=== PATIENT | female | born 1985 | race Hispanic/Latino ===

== ENCOUNTER 2018-08-11 23:05 | Emergency (ER) | payer BC ==
[2018-08-11 23:36] LABS: APPEARANCE,URINE SLIGHTLY CLOUDY (CLEAR); BILIRUBIN,URINE Negative (NEGATIVE); COLOR,URINE Yellow (YELLOW); GLUCOSE, URINE (UA) Negative (NEGATIVE); KETONES,URINE Negative (NEGATIVE); LEUKOCYTE ESTERASE ,URINE Moderate (NEGATIVE); NITRATE,URINE Negative (NEGATIVE); OCCULT BLOOD,URINE Moderate (NEGATIVE); PROTEIN,URINE Negative (NEGATIVE); UROBILINOGEN,URINE 0.2 mg/dL (0.2-1.0)
[2018-08-11 23:47] LABS: BACTERIA,URINE Few /HPF (None Seen)
[2018-08-11 23:48] LABS: BASOPHILS % (AUTO) 0.6 % (0.0-5.0); EOSINOPHILS % (AUTO) 0.5 % (0.0-8.0); HEMATOCRIT 39.9 % (36-48); LYMPHOCYTES % (AUTO) 31.8 % (21.0-51.0); MEAN CORPUSCULAR HEMOGLOBIN 30.8 pg (27.0-33.0); MEAN CORPUSCULAR HGB CONC 34.2 g/dL (32.0-36.0); MEAN CORPUSCULAR VOLUME 90.2 fL (79-99); MONOCYTES % (AUTO) 4.2 % (3.0-13.0); NEUTROPHILS % (AUTO) 62.9 % (40.0-77.0); PLATELET COUNT (AUTO) 261 K/uL (130-400); RED BLOOD CELL COUNT(AUTO) 4.43 MIL/uL (4.00-5.50); RED CELL DISTRIBUTION WIDTH 13.1 % (11.0-15.5); WHITE BLOOD COUNT (AUTO) 10.6 K/uL (4.8-10.8)
[2018-08-12 00:02] LABS: CREATININE 0.6 mg/dL (0.5-1.5); POTASSIUM 3.5 mmol/L (3.5-5.1)
[2018-08-12 00:05] LABS: INR 0.98 (0.85-1.15); PROTHROMBIN TIME 10.3 SEC (9.6-11.6)
[2018-08-12 00:31] LABS: ALBUMIN 3.4 g/dL (3.5-5.0); BILIRUBIN,TOTAL 0.4 mg/dL (0.2-1.0); TOTAL PROTEIN, SERUM 7.3 g/dL (6.0-8.3)
== END 2018-08-12 01:43 | disposition home or self-care (01) ==
LOC: EDH 23:05
DX: O20.0 Threatened abortion (principal); Z90.49 Acquired absence of other specified parts of digestive tract; Z3A.01 Less than 8 weeks gestation of pregnancy
CPT/HCPCS: 36415; 76801; 80053; 81001; 84702; 85025; 85610; 85730

== ENCOUNTER 2018-09-20 19:59 | Observation (INO) | payer BC, MEDICAID ==
[~2018-09-20] VITALS: Ht 157.5 cm; Wt 59.0 kg
[2018-09-20 22:09] LABS: BASOPHILS % (AUTO) 0.7 % (0.0-5.0); EOSINOPHILS % (AUTO) 0.4 % (0.0-8.0); HEMATOCRIT 39.8 % (36-48); LYMPHOCYTES % (AUTO) 24.5 % (21.0-51.0); MEAN CORPUSCULAR HEMOGLOBIN 31.1 pg (27.0-33.0); MEAN CORPUSCULAR HGB CONC 34.3 g/dL (32.0-36.0); MEAN CORPUSCULAR VOLUME 90.6 fL (79-99); MONOCYTES % (AUTO) 4.9 % (3.0-13.0); NEUTROPHILS % (AUTO) 69.5 % (40.0-77.0); NUCLEATED RED BLOOD CELLS 0.1 % (0.0-0.19); PLATELET COUNT (AUTO) 239 K/uL (130-400); RED CELL DISTRIBUTION WIDTH 13.9 % (11.0-15.5); WHITE BLOOD COUNT (AUTO) 11.2 K/uL (4.8-10.8)
[2018-09-20 22:21] LABS: CREATININE 0.5 mg/dL (0.5-1.5); POTASSIUM 3.6 mmol/L (3.5-5.1)
[2018-09-20 22:25] LABS: ALBUMIN 3.3 g/dL (3.5-5.0); BILIRUBIN,TOTAL 0.2 mg/dL (0.2-1.0); TOTAL PROTEIN, SERUM 7.5 g/dL (6.0-8.3)
[2018-09-20 22:46] LABS: APPEARANCE,URINE Cloudy (CLEAR); BILIRUBIN,URINE Negative (NEGATIVE); COLOR,URINE Yellow (YELLOW); GLUCOSE, URINE (UA) Negative (NEGATIVE); KETONES,URINE Negative (NEGATIVE); LEUKOCYTE ESTERASE ,URINE Trace (NEGATIVE); NITRATE,URINE Negative (NEGATIVE); OCCULT BLOOD,URINE Negative (NEGATIVE); PROTEIN,URINE Negative (NEGATIVE); UROBILINOGEN,URINE 0.2 mg/dL (0.2-1.0)
[2018-09-20 22:55] LABS: BACTERIA,URINE None Seen /HPF (None Seen); RBC,URINE None Seen /HPF (0-1); SQUAMOUS EPITHELIAL CELL,UR Many /HPF (0-2); WBC,URINE 0-1 /HPF (0-1)
[2018-09-20] MEDS ORDERED: SODIUM CHLORIDE 0.9% 1000ML 1,000 ML IV ONE (23:48)
[2018-09-21] VITALS (7 sets, daily range): BP systolic 93–123; BP diastolic 57–77
[2018-09-21] MEDS ORDERED: ONDANSETRON HCL 4 MG/2 ML VIAL IV PRN (00:30)
[2018-09-21] MEDS ORDERED: MAG HYDROX/AL HYDROX/SIMETH ES 30 ML SUSP UDCUP PO PRN (00:30)
[2018-09-21] MEDS ORDERED: MORPHINE SULFATE 2 MG/ML 1ML SYG IV PRN (00:30)
[2018-09-21] MEDS ORDERED: MORPHINE SULFATE 4 MG/1ML SYG ONE (00:43)
[2018-09-21] MEDS ORDERED: ONDANSETRON HCL 4 MG/2 ML VIAL ONE (00:43)
[2018-09-21] MEDS ORDERED: SODIUM CHLORIDE 0.9% 1000ML 1,000 ML IV ONE (01:00)
--- NOTE | 2018-09-21 01:20 | NUR ---
Patient received from ED: Patient came in via wheelchair with IV of NS regulated at 150 ml/hour infusing to right antecubital patent. She was oriented to her room, call light given. Plan of care discussed with patient verbalizes understanding. Patient claimed, " I had sharp pain on my left upper quadrant of abdomen and lower right side of abdomen that radiates to my back in a scale of 8." " They give me Morphine in ER but I'm anxious to receive the Morphine it might affect my baby inside." I just prefer Tylenol plain for pain. " Patient was given re assurance to give Tylenol plain for pain."
--- NOTE | 2018-09-21 01:55 | NUR ---
Communication: Alhaji Leach PAC, called to verify order NG tube instruction: Low suction was informed that patient denies vomiting only felt nauseated. received orders to hold NG tube instruction: Low suction.
[2018-09-21] MEDS ORDERED: METR-172 PO (02:47)
[2018-09-21] MEDS ORDERED: PREN-66 PO (02:47)
[2018-09-21] MEDS: ACETAMINOPHEN 325 MG TAB PO PRN ×2 (04:03→16:02)
[2018-09-21] MEDS: SODIUM CHLORIDE 0.9% 1000ML 1,000 ML IV SCH ×3 (08:24→21:56)
[2018-09-21 17:34] LABS: HEMATOCRIT 37.5 % (36-48); MEAN CORPUSCULAR HEMOGLOBIN 31.4 pg (27.0-33.0); MEAN CORPUSCULAR HGB CONC 34.3 g/dL (32.0-36.0); MEAN CORPUSCULAR VOLUME 91.5 fL (79-99); PLATELET COUNT (AUTO) 243 K/uL (130-400); RED BLOOD CELL COUNT(AUTO) 4.09 MIL/uL (4.00-5.50); RED CELL DISTRIBUTION WIDTH 13.9 % (11.0-15.5); WHITE BLOOD COUNT (AUTO) 11.9 K/uL (4.8-10.8)
[2018-09-21 18:01] LABS: ALBUMIN 2.9 g/dL (3.5-5.0); BILIRUBIN,TOTAL 0.7 mg/dL (0.2-1.0); CREATININE 0.6 mg/dL (0.5-1.5); POTASSIUM 3.8 mmol/L (3.5-5.1); TOTAL PROTEIN, SERUM 6.5 g/dL (6.0-8.3)
[2018-09-22] MEDS: ACETAMINOPHEN 325 MG TAB PO PRN (03:37)
[2018-09-22 03:38] VITALS: BP 90/61
[2018-09-22] MEDS: SODIUM CHLORIDE 0.9% 1000ML 1,000 ML IV SCH ×2 (04:50→11:48)
[2018-09-22 05:17] LABS: CHOLESTEROL 172 mg/dL (<200); HDL CHOLESTEROL 85 mg/dL (35-85); LDL DIRECT 78 mg/dL (0-99); LIPASE 250 U/L (114-286); TRIGLYCERIDES 118 mg/dL (30-200)
[2018-09-22 07:37] VITALS: BP 108/62
--- NOTE | 2018-09-22 08:20 | NUR ---
PATIENT IS RESTING QUIETLY AND DENIES ANY FURTHER PAIN. PIV IS INFUSING WELL TO LEFT ANTERIOR FOREARM AT 150CC/HR OF NS.
[2018-09-22 11:28] VITALS: BP 93/53
--- NOTE | 2018-09-22 12:00 | NUR ---
TIP CABRERA ROUNDED WITH DR. Mallory AND INFORMED PATIENT OF DISCHARGE IF TOLERATED REGULAR DIET. REGULAR DIET WAS ORDERED FOR LUNCH AND DINNER. RICK WHELAN WILL PLACE DISCHARGE ORDER FOR PT TO BE DISCHARGE.
--- NOTE | 2018-09-22 12:22 | NUR ---
DC PLAN VISITED WITH PATIENT. PATIENT LIVES WITH DAUGHTER. INDEPENDENT ABLE TO PERFORM ADL'S. PATIENT HAS NO SERVICES OR DME'S. FEELS SAFE TO RETURN HOME. Addendum: 09/22/18 at 1223 by LELA HERNÁNDEZ RN CM Amended: Links added.
--- NOTE | 2018-09-22 12:45 | NUR ---
ORDER RECEIVED FOR DISCHARGE AND SCRIPT FOR VIT. WAS TRANSMITTED TO [facility].
[2018-09-22 15:38] VITALS: BP 97/54
--- NOTE | 2018-09-22 15:45 | NUR ---
DISCHARGE INSTRUCTIONS INITIATED AND INFO PROVIDED ON LOWFAT DIET AND DIET FOR PATIENT'S WITH PANCREATITIS. PATIENT STABLE.
--- NOTE | 2018-09-22 18:00 | NUR ---
PATIENT WAS TAKEN VIA W/C TO FAMILY VEHICLE AND WAS DISCHARGED TO HER SIGNIFICANT OTHER IN STABLE CONDITION. PATIENT WAS ABLE TO TOLERATE REGULAR LOWFAT DIET AND DENIES ANY PAIN AFTER HAVING LUNCH AND DINNER AND ATE 100% OF MEALS.
== END 2018-09-22 18:00 | disposition home or self-care (01) ==
LOC: EDH 19:59 → EDHIP 09-21 00:02 → WSH 09-21 01:20
PROVIDERS: ADMIT Internal Medicine; ATTEND Internal Medicine
DX: O99.611 Diseases of the digestive system complicating pregnancy, first trimester (principal); K85.90 Acute pancreatitis without necrosis or infection, unspecified; Z3A.12 12 weeks gestation of pregnancy; Z90.49 Acquired absence of other specified parts of digestive tract
CPT/HCPCS: 36415 ×3; 76705; 76801; 80053 ×2; 80061; 81001; 82150 ×2; 83690 ×3; 85025; 85027; 99283; G0378 ×42; J2270; J2405; J7030 ×5

== ENCOUNTER 2018-12-24 22:16 | Observation (INO) | payer MEDICAID ==
[~2018-12-24] VITALS: Ht 157.5 cm; Wt 68.0 kg
[~2018-12-24 22:16] MED LIST: PREN1CAP31 PO
[2018-12-24] MEDS ORDERED: MORPHINE SULFATE 4 MG/1ML SYG ONE (22:42)
[2018-12-24 22:48] LABS: APPEARANCE,URINE Clear (CLEAR); BILIRUBIN,URINE Negative (NEGATIVE); COLOR,URINE Yellow (YELLOW); GLUCOSE, URINE (UA) Negative (NEGATIVE); KETONES,URINE Negative (NEGATIVE); LEUKOCYTE ESTERASE ,URINE Small (NEGATIVE); NITRATE,URINE Negative (NEGATIVE); OCCULT BLOOD,URINE Negative (NEGATIVE); PH,URINE 7.5 (5.0-8.0); PROTEIN,URINE Negative (NEGATIVE)
[2018-12-24 22:58] LABS: HCG,QUAL RESULT POSITIVE (NEGATIVE)
[2018-12-24 23:12] LABS: RBC,URINE 0-1 /HPF (0-1); WBC,URINE 0-1 /HPF (0-1)
[2018-12-24 23:12] LABS: CREATININE 0.3 mg/dL (0.5-1.5); POTASSIUM 3.4 mmol/L (3.5-5.1)
[2018-12-24 23:13] LABS: BACTERIA,URINE Few /HPF (None Seen)
[2018-12-24 23:16] LABS: ALBUMIN 2.7 g/dL (3.5-5.0); BILIRUBIN,TOTAL 0.3 mg/dL (0.2-1.0); TOTAL PROTEIN, SERUM 6.5 g/dL (6.0-8.3)
[2018-12-24 23:25] LABS: BASOPHILS % (AUTO) 1.1 % (0.0-5.0); EOSINOPHILS % (AUTO) 0.9 % (0.0-8.0); HEMATOCRIT 32.9 % (36-48); MEAN CORPUSCULAR HEMOGLOBIN 32.7 pg (27.0-33.0); MEAN CORPUSCULAR HGB CONC 35.3 g/dL (32.0-36.0); MEAN CORPUSCULAR VOLUME 92.6 fL (79-99); MONOCYTES % (AUTO) 5.1 % (3.0-13.0); NEUTROPHILS % (AUTO) 70.9 % (40.0-77.0); NUCLEATED RED BLOOD CELLS 0.1 % (0.0-0.19); PLATELET COUNT (AUTO) 184 K/uL (130-400); RED BLOOD CELL COUNT(AUTO) 3.55 MIL/uL (4.00-5.50); RED CELL DISTRIBUTION WIDTH 14.4 % (11.0-15.5); WHITE BLOOD COUNT (AUTO) 12.4 K/uL (4.8-10.8)
[2018-12-25 00:57] LABS: AMPHET/METH SCREEN,URINE NEGATIVE (NEGATIVE); BARBITURATE SCREEN, URINE NEGATIVE (NEGATIVE); BENZODIAZEPINES SCREEN,URINE NEGATIVE (NEGATIVE); CANNABINOID SCREEN,URINE NEGATIVE (NEGATIVE); COCAINE SCREEN,URINE NEGATIVE (NEGATIVE); OPIATE SCREEN,URINE NEGATIVE (NEGATIVE); PHENCYCLIDINE SCREEN,URINE NEGATIVE (NEGATIVE)
[2018-12-25] MEDS ORDERED: BUTORPHANOL TARTRATE 2 MG/ML IVP SCH (06:30)
[2018-12-25] MEDS ORDERED: BUTORPHANOL TARTRATE 1 MG/ML IVP PRN (14:30)
[2018-12-25 15:11] VITALS: BP 116/67
[2018-12-25 15:43] LABS: AMYLASE 76 U/L (25-115); LIPASE 289 U/L (114-286)
[2018-12-25] MEDS ORDERED: METOCLOPRAMIDE 10 MG/2 ML VIAL IVP SCH (17:00)
[2018-12-25 19:35] VITALS: BP 103/62
[2018-12-25] MEDS: LACTATED RINGERS 1000ML 1,000 ML IV SCH (20:46)
[2018-12-25] MEDS ORDERED: BUTORPHANOL TARTRATE 2 MG/ML IVP PRN (21:03)
[2018-12-25] MEDS: FAMOTIDINE/PF 20 MG/2 ML VIAL IV SCH (21:34)
[2018-12-26 00:52] VITALS: BP 89/56
[2018-12-26] MEDS: METOCLOPRAMIDE 10 MG/2 ML VIAL IVP SCH ×3 (01:31→17:00)
[2018-12-26] MEDS: LACTATED RINGERS 1000ML 1,000 ML IV SCH ×2 (03:17→12:09)
[2018-12-26 03:45] VITALS: BP 95/59
[2018-12-26 07:20] VITALS: BP 101/58
--- NOTE | 2018-12-26 08:05 | NUR ---
NST NST COMPLETED FROM , PT FELT BABY MOVE PLOTTED ON STRIP, STRIP IN CHART, TOLERATED WELL, NO C/O PAIN AT THIS TIME
[2018-12-26] MEDS: FAMOTIDINE/PF 20 MG/2 ML VIAL IV SCH (09:02)
[2018-12-26] MEDS ORDERED: ACETAMINOPHEN 325 MG TAB PO PRN (09:45)
[2018-12-26 10:04] LABS: BASOPHILS % (AUTO) 0.7 % (0.0-5.0); EOSINOPHILS % (AUTO) 0.4 % (0.0-8.0); HEMATOCRIT 32.9 % (36-48); LYMPHOCYTES % (AUTO) 17.8 % (21.0-51.0); MEAN CORPUSCULAR HEMOGLOBIN 33.7 pg (27.0-33.0); MEAN CORPUSCULAR HGB CONC 35.9 g/dL (32.0-36.0); MEAN CORPUSCULAR VOLUME 93.8 fL (79-99); MONOCYTES % (AUTO) 3.3 % (3.0-13.0); NEUTROPHILS % (AUTO) 77.8 % (40.0-77.0); PLATELET COUNT (AUTO) 220 K/uL (130-400); RED BLOOD CELL COUNT(AUTO) 3.51 MIL/uL (4.00-5.50); RED CELL DISTRIBUTION WIDTH 13.9 % (11.0-15.5); WHITE BLOOD COUNT (AUTO) 8.9 K/uL (4.8-10.8)
[2018-12-26 10:13] LABS: CREATININE 0.4 mg/dL (0.5-1.5); POTASSIUM 3.5 mmol/L (3.5-5.1)
[2018-12-26 10:18] LABS: ALBUMIN 2.5 g/dL (3.5-5.0); BILIRUBIN,TOTAL 0.9 mg/dL (0.2-1.0); CRP QUANTITATIVE 18.1 mg/L (0.00-9.0); TOTAL PROTEIN, SERUM 5.9 g/dL (6.0-8.3)
[2018-12-26 12:12] VITALS: BP 99/63
--- NOTE | 2018-12-26 15:50 | NUR ---
LUNCH PT COMPLETED EVERYTHING ON LUNCH TRAY, DOES NOT HAVE ANY PAIN, WILL TAKE OUT IV SO PT CAN SHOWER AND GET DISCHARGE PAPER WORK READY
[2018-12-26 16:40] VITALS: BP 100/58
--- NOTE | 2018-12-26 17:30 | NUR ---
DISCHARGE PT STABLE, NO PAIN, NO COMPLAINTS; PT LEFT UNIT, VIA WHEELCHAIR, STILL , ACCOMPANIED BY LUIS MIGUEL, PHUC AND SPOUSE CARRYING ALL PERSONAL BELONGINGS AND INSTRUCTIONS; PT LEFT FACILITY IN PERSONAL VEHICLE
== END 2018-12-26 17:30 | disposition home or self-care (01) ==
LOC: EDH 22:16 → EDHIP 22:17 → LDH 12-25 00:21 → WSH 12-25 15:06
PROVIDERS: ADMIT Obstetrics & Gynecology; ATTEND Obstetrics & Gynecology
DX: O26.892 Other specified pregnancy related conditions, second trimester (principal); R10.13 Epigastric pain; R11.0 Nausea; Z3A.26 26 weeks gestation of pregnancy; Z79.899 Other long term (current) drug therapy
CPT/HCPCS: 36415 ×3; 76700; 80053 ×2; 80305; 81001; 81025; 82150; 83690 ×2; 85025 ×2; 86140; 96374; 96375; 96376 ×2; 99284; G0378 ×43; J0595 ×3; J2270; J2765 ×3; J3490 ×2; J7120 ×4; 96360; 96361

== ENCOUNTER 2021-12-14 23:57 | Emergency (ER) | payer MEDICAID ==
[~2021-12-14] VITALS: Ht 157.5 cm; Wt 63.5 kg
[2021-12-15 01:01] LABS: BASOPHILS % (AUTO) 0.3 % (0.0-5.0); EOSINOPHILS % (AUTO) 0.9 % (0.0-8.0); HEMATOCRIT 40.9 % (36-48); LYMPHOCYTES % (AUTO) 42.6 % (21.0-51.0); MEAN CORPUSCULAR HEMOGLOBIN 29.9 pg (27.0-33.0); MEAN CORPUSCULAR HGB CONC 33.7 g/dL (32.0-36.0); MEAN CORPUSCULAR VOLUME 88.7 fL (79-99); MONOCYTES % (AUTO) 4.8 % (3.0-13.0); NEUTROPHILS % (AUTO) 51.3 % (40.0-77.0); PLATELET COUNT (AUTO) 256 K/uL (130-400); RED BLOOD CELL COUNT(AUTO) 4.61 MIL/uL (4.00-5.50); RED CELL DISTRIBUTION WIDTH 13.4 % (11.0-15.5); WHITE BLOOD COUNT (AUTO) 7.5 K/uL (4.8-10.8)
[2021-12-15 01:33] LABS: CREATININE 0.7 mg/dL (0.5-1.5); POTASSIUM 4.2 mmol/L (3.5-5.1)
[2021-12-15 01:39] LABS: ALBUMIN 3.5 g/dL (3.5-5.0); BILIRUBIN,TOTAL 0.4 mg/dL (0.2-1.0); TOTAL PROTEIN, SERUM 7.5 g/dL (6.0-8.3)
[2021-12-15] MEDS ORDERED: PANTOPRAZOLE 40 MG/VIAL IVP ONE (02:00)
[2021-12-15] MEDS ORDERED: FAMOTIDINE 20MG VIAL IV ONE (02:00)
[2021-12-15] MEDS ORDERED: 0.9%NACL 1000ML 1,000 ML IV ONE ×2 (02:00→02:30)
[2021-12-15] MEDS ORDERED: ONDANSETRON 4MG INJ IVP ONE (02:00)
[2021-12-15] MEDS ORDERED: METOCLOPRAMIDE 10 MG/2 ML VIAL IVP ONE (02:00)
[2021-12-15 02:21] LABS: APPEARANCE,URINE Cloudy (CLEAR); BILIRUBIN,URINE Negative (NEGATIVE); COLOR,URINE Yellow (YELLOW); GLUCOSE, URINE (UA) Negative (NEGATIVE); KETONES,URINE Negative (NEGATIVE); LEUKOCYTE ESTERASE ,URINE Trace (NEGATIVE); NITRATE,URINE Negative (NEGATIVE); OCCULT BLOOD,URINE Trace (NEGATIVE); PROTEIN,URINE Negative (NEGATIVE); UROBILINOGEN,URINE 0.2 mg/dL (0.2-1.0)
[2021-12-15 02:27] LABS: BACTERIA,URINE Moderate /HPF (None Seen); MUCUS,URINE Rare LPF (None Seen); RBC,URINE 0-1 /HPF (0-1); SQUAMOUS EPITHELIAL CELL,UR Few /HPF (0-2); WBC,URINE 0-1 /HPF (0-1)
[2021-12-15] MEDS ORDERED: KETOROLAC 30MG VIAL (30MG/ML) IVP ONE (04:00)
[2021-12-15] MEDS ORDERED: DiphenhydrAMINE HCL 50 MG/ML VIAL IV ONE (04:00)
[2021-12-15] MEDS ORDERED: PANT40TA PO (04:42)
[2021-12-15] MEDS ORDERED: DICY20TA2 PO (04:42)
[2021-12-15] MEDS ORDERED: ONDA4TAB10 PO (04:42)
[2021-12-15] MEDS ORDERED: METO-296 PO (04:42)
[2021-12-15 05:38] VITALS: BP 111/70
== END 2021-12-15 05:41 | disposition home or self-care (01) ==
LOC: EDH 23:57
DX: R10.10 Upper abdominal pain, unspecified (principal); R10.13 Epigastric pain; E86.9 Volume depletion, unspecified; Z79.899 Other long term (current) drug therapy; Z90.49 Acquired absence of other specified parts of digestive tract; Z98.890 Other specified postprocedural states
CPT/HCPCS: 36415; 80053; 81001; 83690; 85025; 87088; 96361; 96374; 96375; 99284; J1200; J1885; J2405; J2765; J7030 ×2; S0028; S0164; C9113; J3490

== ENCOUNTER 2023-03-20 08:53 | Day surgery (SDC) | payer MEDICAID ==
[2023-03-15 11:53] LABS: BASOPHILS % (AUTO) 0.1 % (0.0-5.0); EOSINOPHILS % (AUTO) 0.4 % (0.0-8.0); HEMATOCRIT 42.9 % (36-48); LYMPHOCYTES % (AUTO) 36.2 % (21.0-51.0); MEAN CORPUSCULAR HEMOGLOBIN 30.2 pg (27.0-33.0); MEAN CORPUSCULAR HGB CONC 33.8 g/dL (32.0-36.0); MEAN CORPUSCULAR VOLUME 89.4 fL (79-99); MONOCYTES % (AUTO) 4.7 % (3.0-13.0); NEUTROPHILS % (AUTO) 58.3 % (40.0-77.0); PLATELET COUNT (AUTO) 286 K/uL (130-400); RED CELL DISTRIBUTION WIDTH 12.7 % (11.0-15.5); WHITE BLOOD COUNT (AUTO) 6.9 K/uL (4.8-10.8)
[2023-03-15 12:02] LABS: CREATININE 0.7 mg/dL (0.5-1.5); POTASSIUM 4.5 mmol/L (3.5-5.1)
[2023-03-15 12:24] VITALS: BP 110/77; PULSE 70; RESP 16
[~2023-03-20] VITALS: Ht 157.5 cm; Wt 66.4 kg
[2023-03-20] VITALS (19 sets, daily range): BP systolic 107–127; BP diastolic 66–89; PULSE 72–99; RESP 15–18
[~2023-03-20 08:53] MED LIST changes: +DOXY100C5 PO; -PREN1CAP31 PO; +SPIR25TA6 PO
[2023-03-20] MEDS ORDERED: LACTATED RINGERS 1000ML 1,000 ML IV ONE (09:20)
[2023-03-20] MEDS: CEFAZOLIN SODIUM 2 GM VIAL ONE ×2 (09:34→10:18)
[2023-03-20] MEDS ORDERED: NEOSTIGMINE 5MG/5ML SYR IV ONE (09:46)
[2023-03-20] MEDS ORDERED: LIDOCAINE PF 100MG/5ML (2%) SYRINGE 5ML ONE (09:46)
[2023-03-20] MEDS ORDERED: SUCCINYLCHOLINE 200MG/10ML SYR ONE (09:46)
[2023-03-20] MEDS ORDERED: PROPOFOL 10 MG/ML 20ML VIAL IV ONE (09:46)
[2023-03-20] MEDS ORDERED: ROCURONIUM 10MG/1ML SYR 10 MG/ML ML ONE (09:46)
[2023-03-20] MEDS ORDERED: DEXAMETHASONE SOD PHOSPHATE 10MG/ML 1ML VIAL ONE (09:46)
[2023-03-20] MEDS ORDERED: MIDAZOLAM HCL 1 MG/ML 2ML VIAL ONE (09:46)
[2023-03-20] MEDS ORDERED: GLYCOPYRROLATE 1 MG/5 ML SYRINGE ONE (09:46)
[2023-03-20] MEDS ORDERED: ONDANSETRON 4MG INJ ONE (09:46)
[2023-03-20] MEDS ORDERED: FENTANYL CITRATE PF 50 MCG/1 ML 2ML VIAL ONE (09:47)
[2023-03-20] MEDS ORDERED: BUPIVACAINE/PF 0.5% 10ML VIAL ONE (09:55)
[2023-03-20] MEDS ORDERED: BUPIVACAINE/PF 0.5% 10ML VIAL IV ONE (10:50)
[2023-03-20] MEDS ORDERED: MEPERIDINE-PF 25 MG/ML SYG ONE (11:43)
[2023-03-20] MEDS ORDERED: IBUPROFEN 800 MG TAB ONE (12:22)
== END 2023-03-20 13:15 | disposition home or self-care (01) ==
LOC: DAH 08:53
PROVIDERS: ATTEND Surgery
DX: K42.9 Umbilical hernia without obstruction or gangrene (principal); Z20.822 Contact with and (suspected) exposure to COVID-19; Z98.890 Other specified postprocedural states; Z82.49 Family history of ischemic heart disease and other diseases of the circulatory system; Z83.3 Family history of diabetes mellitus; Z98.891 History of uterine scar from previous surgery; Z90.49 Acquired absence of other specified parts of digestive tract; Z80.9 Family history of malignant neoplasm, unspecified
CPT/HCPCS: 80048; 84703; 85025; 87426; 36415; 49591; 81025; A6260; A4663; A4452; J7120; J3010; J0330; J3490 ×4; J1100; J2710; J2250; J2405; J2175; J0690; A4930; A4215; A4223; A4222; A4221; A4600; J2001; J2704

== ENCOUNTER 2023-11-13 07:03 | Observation (INO) | payer MEDICAID ==
[2023-11-09 10:21] VITALS: BP 118/70; PULSE 77; RESP 18
[2023-11-09 10:27] LABS: BASOPHILS # (AUTO) 0.03 K/uL (0.00-0.20); BASOPHILS % (AUTO) 0.4 % (0.0-5.0); EOSINOPHILS # (AUTO) 0.07 K/uL (0.00-0.70); EOSINOPHILS % (AUTO) 0.9 % (0.0-8.0); HEMATOCRIT 44.3 % (36-48); IMMATURE GRANULOCYTE ABSOLUTE 0.02 K/uL (0-1); LYMPHOCYTES # (AUTO) 3.2 K/uL (1.0-4.8); LYMPHOCYTES % (AUTO) 38.8 % (21.0-51.0); MEAN CORPUSCULAR HEMOGLOBIN 30.8 pg (27.0-33.0); MEAN CORPUSCULAR HGB CONC 34.1 g/dL (32.0-36.0); MEAN CORPUSCULAR VOLUME 90.4 fL (79-99); MONOCYTES # (AUTO) 0.4 K/uL (0.1-1.0); MONOCYTES % (AUTO) 5.3 % (3.0-13.0); NEUTROPHILS # (AUTO) 4.4 K/uL (1.8-7.7); NEUTROPHILS % (AUTO) 54.4 % (40.0-77.0); PLATELET COUNT (AUTO) 289 K/uL (130-400); RED CELL DISTRIBUTION WIDTH 12.5 % (11.0-15.5); WHITE BLOOD COUNT (AUTO) 8.2 K/uL (4.8-10.8)
[2023-11-09 10:29] LABS: CREATININE 0.8 mg/dL (0.5-1.5); POTASSIUM 4.8 mmol/L (3.5-5.1)
[2023-11-09 10:37] LABS: INR <= 0.93 (0.85-1.15); PROTHROMBIN TIME 10.7 SEC (9.6-11.6)
[2023-11-09 10:39] LABS: PARTIAL THROMBOPLASTIN TIME 29.8 SEC (26.3-35.5)
[2023-11-13] VITALS (32 sets, daily range): BP systolic 104–135; BP diastolic 64–82; PULSE 68–117; RESP 14–20; O2SAT 98–100
[~2023-11-13] VITALS: Ht 157.5 cm; Wt 69.1 kg
[~2023-11-13 07:03] MED LIST changes: -SPIR25TA6 PO
[2023-11-13] MEDS ORDERED: ROCURONIUM BROMIDE 10MG/1ML 5ML VL ONE (08:10)
[2023-11-13] MEDS ORDERED: DEXAMETHASONE SOD PHOSPHATE 4 MG/ML 1ML VIAL ONE (08:10)
[2023-11-13] MEDS ORDERED: FENTANYL CITRATE PF 50 MCG/1 ML 2ML VIAL ONE (08:10)
[2023-11-13] MEDS ORDERED: PROPOFOL 10 MG/ML 20ML VIAL IV ONE (08:10)
[2023-11-13] MEDS ORDERED: MIDAZOLAM HCL 1 MG/ML 2ML VIAL ONE (08:10)
[2023-11-13] MEDS ORDERED: LIDOCAINE PF 100MG/5ML (2%) SYRINGE 5ML ONE (08:10)
[2023-11-13] MEDS ORDERED: ONDANSETRON 4MG INJ ONE (08:11)
[2023-11-13] MEDS: CEFAZOLIN SODIUM 2 GM VIAL ONE (08:30)
[2023-11-13] MEDS: BUPIVACAINE/PF 0.5% 30ML VIAL ONE (08:44)
[2023-11-13] MEDS: LACTATED RINGERS 1000ML 1,000 ML IV ONE (08:58)
[2023-11-13] MEDS ORDERED: GLYCOPYRROLATE 0.2 MG/ML 5 ML VIAL ONE (09:08)
[2023-11-13] MEDS ORDERED: NEOSTIGMINE METHYLSULFATE 1MG/ML IV ONE (09:08)
[2023-11-13] MEDS: KETOROLAC 30MG VIAL (30MG/ML) ONE (09:30)
[2023-11-13] MEDS: ONDANSETRON 4MG INJ ONE (10:20)
[2023-11-13] MEDS: MEPERIDINE-PF 25 MG/ML SYG ONE ×2 (10:21→10:38)
[2023-11-13] MEDS: ACETAMINOPHEN 1,000 MG/100 ML VIAL IV ONE ×2 (11:01→12:00)
[2023-11-13] MEDS ORDERED: 0.9%NACL 1000ML 1,000 ML IV SCH (12:00)
[2023-11-13] MEDS: ACETAMINOPHEN WITH CODEINE 1 TAB TAB PO PRN (12:24)
[2023-11-13] MEDS: MORPHINE 4 MG SYG IVP PRN (14:08)
[2023-11-13] MEDS: CEFAZOLIN SODIUM 2 GM VIAL IVPB SCH (15:34)
[2023-11-13] MEDS: ONDANSETRON 4MG INJ IVP PRN (20:16)
[2023-11-14] VITALS (7 sets, daily range): BP systolic 114–125; BP diastolic 72–87; PULSE 65–74; RESP 17–18; O2SAT 98–99
[2023-11-15 00:01] VITALS: BP 116/77; PULSE 77; RESP 19
[2023-11-15 05:08] VITALS: BP 110/75; PULSE 94; RESP 18
[2023-11-15 07:09] LABS: BASOPHILS # (AUTO) 0.01 K/uL (0.00-0.20); BASOPHILS % (AUTO) 0.1 % (0.0-5.0); EOSINOPHILS # (AUTO) 0.26 K/uL (0.00-0.70); EOSINOPHILS % (AUTO) 2.6 % (0.0-8.0); HEMATOCRIT 37.1 % (36-48); IMMATURE GRANULOCYTE ABSOLUTE 0.02 K/uL (0-1); LYMPHOCYTES # (AUTO) 3.1 K/uL (1.0-4.8); LYMPHOCYTES % (AUTO) 30.7 % (21.0-51.0); MEAN CORPUSCULAR HEMOGLOBIN 30.8 pg (27.0-33.0); MEAN CORPUSCULAR HGB CONC 34.8 g/dL (32.0-36.0); MEAN CORPUSCULAR VOLUME 88.5 fL (79-99); MONOCYTES # (AUTO) 0.6 K/uL (0.1-1.0); MONOCYTES % (AUTO) 5.7 % (3.0-13.0); NEUTROPHILS # (AUTO) 6.2 K/uL (1.8-7.7); NEUTROPHILS % (AUTO) 60.7 % (40.0-77.0); PLATELET COUNT (AUTO) 234 K/uL (130-400); RED BLOOD CELL COUNT(AUTO) 4.19 MIL/uL (4.00-5.50); RED CELL DISTRIBUTION WIDTH 12.8 % (11.0-15.5); WHITE BLOOD COUNT (AUTO) 10.2 K/uL (4.8-10.8)
[2023-11-15 08:00] VITALS: BP 116/79; PULSE 71; RESP 18
[2023-11-15 08:01] VITALS: O2SAT 94
== END 2023-11-15 11:48 | disposition home or self-care (01) ==
LOC: DAH 07:03 → DAHIP 07:04 → DAH 07:04 → WSH 13:59
PROVIDERS: ADMIT Surgery; ATTEND Surgery
DX: K42.9 Umbilical hernia without obstruction or gangrene (principal); Z90.49 Acquired absence of other specified parts of digestive tract; Z88.1 Allergy status to other antibiotic agents
CPT/HCPCS: 80048; 85025 ×2; 85610; 85730; 36415 ×2; 49615; 96376 ×2; 96365; 96366 ×2; 96375; 81025; G0378 ×48; A4452; C1781; J7120; J3010; J3490 ×4; J2250; J2405 ×5; J2270 ×4; J1885; J2710; J0665; J1100; J2175 ×2; J0690 ×6; A4930; A4215; A4223; A4213; A4222; A4221; A4663; A4600; J2001; J2704

== ENCOUNTER → 2023-12-25 | Outpatient (CLI) | payer MEDICAID ==
[2023-12-25 10:17] LABS: BASOPHILS # (AUTO) 0.01 K/uL (0.00-0.20); BASOPHILS % (AUTO) 0.1 % (0.0-5.0); EOSINOPHILS # (AUTO) 0.05 K/uL (0.00-0.70); EOSINOPHILS % (AUTO) 0.7 % (0.0-8.0); HEMATOCRIT 44.4 % (36-48); IMMATURE GRANULOCYTE ABSOLUTE 0.02 K/uL (0-1); LYMPHOCYTES # (AUTO) 2.7 K/uL (1.0-4.8); LYMPHOCYTES % (AUTO) 40.2 % (21.0-51.0); MEAN CORPUSCULAR HEMOGLOBIN 30.8 pg (27.0-33.0); MEAN CORPUSCULAR HGB CONC 34.5 g/dL (32.0-36.0); MEAN CORPUSCULAR VOLUME 89.3 fL (79-99); MONOCYTES # (AUTO) 0.3 K/uL (0.1-1.0); MONOCYTES % (AUTO) 4.5 % (3.0-13.0); NEUTROPHILS # (AUTO) 3.6 K/uL (1.8-7.7); NEUTROPHILS % (AUTO) 54.2 % (40.0-77.0); PLATELET COUNT (AUTO) 291 K/uL (130-400); RED BLOOD CELL COUNT(AUTO) 4.97 MIL/uL (4.00-5.50); RED CELL DISTRIBUTION WIDTH 12.6 % (11.0-15.5); WHITE BLOOD COUNT (AUTO) 6.7 K/uL (4.8-10.8)
[2023-12-25 10:35] LABS: ALBUMIN 4.3 g/dL (3.5-5.0); BILIRUBIN,TOTAL 1.1 mg/dL (0.2-1.0); CREATININE 0.8 mg/dL (0.5-1.0); POTASSIUM 3.9 mmol/L (3.5-5.1); TOTAL PROTEIN, SERUM 8.5 g/dL (6.0-8.3)
== END | disposition home or self-care (01) ==
LOC: LAB 09:11
PROVIDERS: ATTEND Internal Medicine Gastroenterology
DX: R93.3 Abnormal findings on diagnostic imaging of other parts of digestive tract (principal); K85.00 Idiopathic acute pancreatitis without necrosis or infection; R14.0 Abdominal distension (gaseous)
CPT/HCPCS: 36415; 80053; 82150; 82784; 82787; 83516; 83690; 84478; 85025; 86231; 86364

== ENCOUNTER → 2023-12-29 | Outpatient (CLI) | payer MEDICAID ==
[~2023-12-29] MED LIST changes: +IOHEXOL 350 MG/ML 100ML INFUS..BTL IV ONE
== END | disposition home or self-care (01) ==
LOC: RAH 09:57
PROVIDERS: ATTEND Internal Medicine Gastroenterology
DX: K42.9 Umbilical hernia without obstruction or gangrene (principal); K85.00 Idiopathic acute pancreatitis without necrosis or infection; R93.3 Abnormal findings on diagnostic imaging of other parts of digestive tract; I25.10 Atherosclerotic heart disease of native coronary artery without angina pectoris
CPT/HCPCS: 74170; Q9967

== ENCOUNTER 2024-03-03 03:33 | Emergency (ER) | payer MEDICAID ==
[~2024-03-03] VITALS: Ht 157.5 cm; Wt 65.3 kg
[~2024-03-03 03:33] MED LIST changes: -IOHEXOL 350 MG/ML 100ML INFUS..BTL IV ONE
[2024-03-03 04:01] LABS: ADD UA MICROSCOPIC NO; APPEARANCE,URINE CLEAR (CLEAR); BILIRUBIN,URINE NEGATIVE (NEGATIVE); COLOR,URINE COLORLESS (YELLOW); GLUCOSE, URINE (UA) NEGATIVE (NEGATIVE); KETONES,URINE NEGATIVE (NEGATIVE); LEUKOCYTE ESTERASE ,URINE NEGATIVE Leu/uL (NEGATIVE); NITRATE,URINE NEGATIVE (NEGATIVE); OCCULT BLOOD,URINE NEGATIVE (NEGATIVE); PH,URINE 6.5 (5.0-8.0); PROTEIN,URINE NEGATIVE (NEGATIVE); UROBILINOGEN,URINE 0.2 mg/dL (0.2-1.0)
[2024-03-03 04:03] LABS: HCG,QUALITATIVE URINE NEGATIVE (NEGATIVE)
[2024-03-03 04:15] LABS: BASOPHILS # (AUTO) 0.01 K/uL (0.00-0.20); BASOPHILS % (AUTO) 0.1 % (0.0-5.0); EOSINOPHILS # (AUTO) 0.06 K/uL (0.00-0.70); EOSINOPHILS % (AUTO) 0.7 % (0.0-8.0); HEMATOCRIT 39.9 % (36-48); IMMATURE GRANULOCYTE ABSOLUTE 0.02 K/uL (0-1); LYMPHOCYTES # (AUTO) 3.3 K/uL (1.0-4.8); LYMPHOCYTES % (AUTO) 41.4 % (21.0-51.0); MEAN CORPUSCULAR HEMOGLOBIN 30.9 pg (27.0-33.0); MEAN CORPUSCULAR HGB CONC 34.6 g/dL (32.0-36.0); MEAN CORPUSCULAR VOLUME 89.3 fL (79-99); MONOCYTES # (AUTO) 0.5 K/uL (0.1-1.0); MONOCYTES % (AUTO) 5.8 % (3.0-13.0); NEUTROPHILS # (AUTO) 4.2 K/uL (1.8-7.7); NEUTROPHILS % (AUTO) 51.8 % (40.0-77.0); PLATELET COUNT (AUTO) 242 K/uL (130-400); RED BLOOD CELL COUNT(AUTO) 4.47 MIL/uL (4.00-5.50); RED CELL DISTRIBUTION WIDTH 12.6 % (11.0-15.5); WHITE BLOOD COUNT (AUTO) 8.1 K/uL (4.8-10.8)
[2024-03-03 04:26] LABS: CREATININE 0.6 mg/dL (0.5-1.0); POTASSIUM 3.4 mmol/L (3.5-5.1)
[2024-03-03 04:32] LABS: ALBUMIN 3.8 g/dL (3.5-5.0); BILIRUBIN,TOTAL 0.5 mg/dL (0.2-1.0); TOTAL PROTEIN, SERUM 7.8 g/dL (6.0-8.3)
[2024-03-03] MEDS: HYDROMORPHONE 1 MG INJ IVP ONE (05:16)
[2024-03-03 05:53] VITALS: BP 128/90; PULSE 80; RESP 18; O2SAT 96
== END 2024-03-03 06:17 | disposition home or self-care (01) ==
LOC: EDH 03:33
DX: R10.13 Epigastric pain (principal); R11.2 Nausea with vomiting, unspecified; Z90.49 Acquired absence of other specified parts of digestive tract; Z98.890 Other specified postprocedural states
CPT/HCPCS: 99285; 74176; 96374; 82150; 80053; 83690; 85025; 81003; 81025; 36415; J1170

== ENCOUNTER 2024-07-29 07:56 | Day surgery (SDC) | payer MEDICAID ==
[2024-07-25 10:16] LABS: BASOPHILS # (AUTO) 0.02 K/uL (0.00-0.20); BASOPHILS % (AUTO) 0.2 % (0.0-5.0); EOSINOPHILS # (AUTO) 0.04 K/uL (0.00-0.70); EOSINOPHILS % (AUTO) 0.5 % (0.0-8.0); HEMATOCRIT 39.9 % (36-48); IMMATURE GRANULOCYTE ABSOLUTE 0.02 K/uL (0-1); LYMPHOCYTES # (AUTO) 1.8 K/uL (1.0-4.8); LYMPHOCYTES % (AUTO) 21.7 % (21.0-51.0); MEAN CORPUSCULAR HEMOGLOBIN 29.8 pg (27.0-33.0); MEAN CORPUSCULAR HGB CONC 33.3 g/dL (32.0-36.0); MEAN CORPUSCULAR VOLUME 89.5 fL (79-99); MONOCYTES # (AUTO) 0.4 K/uL (0.1-1.0); MONOCYTES % (AUTO) 4.3 % (3.0-13.0); NEUTROPHILS # (AUTO) 6.2 K/uL (1.8-7.7); NEUTROPHILS % (AUTO) 73.1 % (40.0-77.0); PLATELET COUNT (AUTO) 264 K/uL (130-400); RED BLOOD CELL COUNT(AUTO) 4.46 MIL/uL (4.00-5.50); RED CELL DISTRIBUTION WIDTH 12.7 % (11.0-15.5); WHITE BLOOD COUNT (AUTO) 8.4 K/uL (4.8-10.8)
[2024-07-25 10:19] VITALS: BP 129/86; PULSE 74; RESP 16; TEMP 98
[2024-07-25 10:27] LABS: INR 0.98 (0.85-1.15); PROTHROMBIN TIME 10.6 SEC (9.6-11.6)
[2024-07-25 10:29] LABS: PARTIAL THROMBOPLASTIN TIME 28.3 SEC (26.3-35.5)
[2024-07-29] VITALS (15 sets, daily range): BP systolic 116–127; BP diastolic 54–77; PULSE 80–106; RESP 14–18; TEMP 97.3–98
[~2024-07-29] VITALS: Ht 157.5 cm; Wt 66.5 kg
[2024-07-29] MEDS: ceFAZolin SODIUM 2 GM VIAL ONE (08:36)
[2024-07-29] MEDS: LACTATED RINGERS 1000ML 1,000 ML IV ONE (08:37)
[2024-07-29 08:52] LABS: CREATININE 0.9 mg/dL (0.5-1.0); POTASSIUM 3.3 mmol/L (3.5-5.1)
[2024-07-29] MEDS ORDERED: BUPIvacaine/PF 0.25% 30ML VIAL IJ ONE (11:03)
[2024-07-29] MEDS ORDERED: ondanSETRON 4MG INJ ONE (11:43)
[2024-07-29] MEDS ORDERED: LIDOCAINE PF 100MG/5ML (2%) SYRINGE 5ML ONE (11:43)
[2024-07-29] MEDS ORDERED: MIDAZOLAM HCL 1 MG/ML 2ML VIAL ONE (11:43)
[2024-07-29] MEDS ORDERED: proPOFol 10 MG/ML 20ML VIAL IV ONE (11:43)
[2024-07-29] MEDS ORDERED: rocuRONium bROMide 10MG/1ML 5ML VL ONE (11:43)
[2024-07-29] MEDS ORDERED: FENTanyl CITRate PF 50 MCG/1 ML 2ML VIAL ONE (11:45)
[2024-07-29] MEDS ORDERED: dexaMETHasone SOD PHOSPHATE 10MG/ML 1ML VIAL ONE (12:16)
[2024-07-29] MEDS: ceFAZolin SODIUM 2 GM VIAL IVPB ONE (12:19)
[2024-07-29] MEDS ORDERED: NEOSTIGMINE METHYLSULFATE 1MG/ML IV ONE (12:59)
[2024-07-29] MEDS ORDERED: GLYCOPYRROLATE 0.2 MG/ML 5 ML VIAL ONE (12:59)
--- NOTE | 2024-07-29 13:19 | OP ---
Operative Note: DATE OF PROCEDURE: 07/29/24 SURGEON: DELMIS SERRANO MD FAX MACHINE REPAIRER: [] ANESTHESIA: [] General ANESTHESIOLOGIST/BACK DIGGER OPERATOR: [] PREOPERATIVE DIAGNOSIS: [] Incisional hernia POSTOPERATIVE DIAGNOSIS: [] The same SYNOPSIS: [] PROCEDURE: [] Repair of incisional hernia robotically ESTIMATED BLOOD LOSS: [] None INDICATIONS: [] DESCRIPTION OF PROCEDURE: [] With the patient under general anesthesia in reverse Trendelenburg I placed a left upper quadrant Veress needle and abdomen insufflated. An 8 mm trocar for the robot was placed in the left upper quadrant and direct vision I placed two additional 8 mm trocars one in the left flank and in the other one in the left lower quadrant. I visualize significant amount of omentum stuck to the mesh. This is not seem to be any defect within the mesh. Some of the edges of the mesh were slightly and I then proceed to reapproximated with 0 V lock continue in the right upper side and in the left lower side of the mesh. Decision to remove the mesh were placed a new one was done because there is no actually defect in the mesh. I then inspected for any bleeding and all the trocars were removed under direct vision we placed local anesthesia and then closed the wound with 4-0 Monocryl and Steri-Strips DELMIS SERRANO MD Jul 29, 2024 13:19
[2024-07-29] MEDS: ondanSETRON 4MG INJ ONE (13:41)
[2024-07-29] MEDS: MEPERIDINE-PF 25 MG/ML SYG ONE ×2 (13:42→13:46)
--- NOTE | 2024-07-29 14:13 | NUR ---
Full and complete Discharge Instructions given to Patient and Family both verbally and in writing.. All questions answered. Voiced understanding to Surgical precautions and Follow Up. Binder intact as per Dr. Lui. PIV removed with catheter tip intact. Denies c/o pain or discomfort. Appears calm and cooperative. Pending Brother to pick her and Mom up. Informed BOSTON Liriano of pending delay and status of Patient.
== END 2024-07-29 14:52 | disposition home or self-care (01) ==
LOC: DAH 07:56
PROVIDERS: ATTEND Surgery
DX: K43.2 Incisional hernia without obstruction or gangrene (principal); Z79.01 Long term (current) use of anticoagulants; Z90.49 Acquired absence of other specified parts of digestive tract; Z98.890 Other specified postprocedural states; Z79.899 Other long term (current) drug therapy; Z53.8 Procedure and treatment not carried out for other reasons
CPT/HCPCS: 84703; 85025; 85610; 85730; 36415 ×2; 49591; 49623; 80048; 81025; A6260; A4663; J7030; J7120; J3010; J1100; J0665; J3490 ×2; J2003; J2250; J2704; J2405 ×2; J2710; J2175 ×2; J0690 ×2; A4649; C1760; A4215; A4223; A4222; A4221; A4450; A4600

== ENCOUNTER → 2024-11-20 | Outpatient (CLI) | payer MEDICAID ==
[~2024-11-20] MED LIST changes: -DOXY100C5 PO; +IOHEXOL-350 75 ML VIAL IV ONE
--- NOTE | 2024-11-20 08:50 | HMCIMG ---
Exam Type: CT ABDOMEN/PELVIS W/CONTRAST Clinical Information: UNSPECIFIED ABDOMINAL PAIN Comparison: None Contrast: 100 cc's Isovue 370 IV, no complications or adverse reactions CT Dose Index (CTDI): 31.60 mGy Dose Length Product (DLP): 1740.80 total mGy-cm Findings: No evidence of nephro or ureterolithiasis is found. No hydronephrosis or ureteral dilatation is seen. The lung bases are clear. The stomach is unremarkable. It shows no wall thickening. No gross ulceration is seen. It is not overly distended. There are no surrounding inflammatory changes. No wall lesions are identified to suggest cancer. The spleen is unremarkable. It is not enlarged. The pancreas shows normal anatomy. It is not fatty replaced. It shows no lesions. The pancreatic duct is not dilated. The gallbladder is surgically absent. The adrenal glands are unremarkable. There is no enlargement. No lesions are noted. The liver is unremarkable. It shows no focal masses. The appendix is unremarkable. It shows no evidence of inflammation. No appendicolith is seen. The small bowel is unremarkable. There is no evidence of dilatation to suggest obstruction. No evidence of adynamic ileus is seen. There is no small bowel wall thickening to suggest enteritis. The colon is unremarkable. The urinary bladder is unremarkable. There is no wall thickening to suggest tumor or inflammation. There are no intraluminal calculi. There are no diverticula. There is no evidence of chronic bladder outlet obstruction. There is no evidence of urinary bladder distention to suggest urinary retention. The other pelvic structures are unremarkable. The bony and vascular structures are unremarkable for the patient's age. IMPRESSION: NEGATIVE CT SCAN OF THE ABDOMEN AND PELVIS WITH ORAL AND IV CONTRAST. This study was performed using dose reduction techniques to include automated exposure control and/or adjustment of the mA and/or kV according to patient size.
== END | disposition home or self-care (01) ==
LOC: RAH 08:16
PROVIDERS: ATTEND Surgery
DX: R10.9 Unspecified abdominal pain (principal); Z90.49 Acquired absence of other specified parts of digestive tract
CPT/HCPCS: 74177; Q9967

== ENCOUNTER 2024-12-17 17:50 | Observation (INO) | payer MEDICAID ==
[~2024-12-17] VITALS: Ht 160 cm; Wt 64.3 kg
[2024-12-17] MEDS: cefTRIAXone 1G VIAL IVPB SCH (08:00)
--- NOTE | 2024-12-17 18:00 | NUR ---
PT JUST NOW PLACED IN MY BED 11
--- NOTE | 2024-12-17 18:46 | ERN ---
General Chief Complaint: Post-Op Problem Stated Complaint: POST OP PROBLEM Time Seen by MD: 17:59 Source: patient History of Present Illness Initial Comments A 39-year-old female coming in complaining of abdominal pain. Per patient she had hernia repair by Dr. Ho on Monday four days ago. She states that the pain is increasingly gotten worse and states he was here for further evaluation. Allergies: Coded Allergies: No Known Drug Allergies (Unverified Allergy, Unknown, 09/21/18) Home Meds No Active Prescriptions or Reported Meds Past Medical History Past Medical History: Other Medical History Other: PANCREATITIS Past Surgical History: Cholecystectomy, Other, Surgical History Other: HERNIA Social History Social History: Negative, Lives with family Female( History) LMP: Oct 12, 2024 ROS Dictation CONSTITUTIONAL: No chills, no fever, no weakness, no diaphoresis, no malaise. HEAD/FACE: No signs of trauma. EENT: No eye pain, no blurred vision, no tearing, no double vision, no ear pain, no ear discharge, no nose pain, no nasal congestion, no throat pain, no throat swelling, no mouth pain. RESPIRATORY: No cough, no orthopnea, no SOB, no stridor, no wheezing. CARDIOVASCULAR: No chest pain, no edema, no palpitations, no syncope. GASTROINTESTINAL/ABDOMINAL: abdominal pain, no constipation, no diarrhea, no nausea, no vomiting. GENITOURINARY: No abnormal discharge, no dysuria, no frequent urination, no hematuria. No complaints of pain in the genitals. MUSCULOSKELETAL: No back pain, no gout, no joint pain, no joint swelling, no muscle pain, no muscle stiffness, no neck pain. INTEGUMENTARY: No change in color, no change in hair/nails, no dryness, no lesion, no lumps, no rash. NEUROLOGICAL/PSYCH: No anxiety, not depressed, no emotional problem, no headache, no numbness, no pre-existing deficit, no history of seizures, no tremors, no weakness. HEMATOLOGIC/LYMPHATIC: Not anemic, no history of blood clots, no apparent bleeding, no bruising, glands not swollen. All Systems Negative, Except as Noted. Physical Exam Physical Exam Dictation VITAL SIGNS: Reviewed. GENERAL APPEARANCE: Alert, oriented x3, no acute distress, obese. HEAD AND FACE: Non-traumatic. EYES: PERRL, pink conjunctivas, eyelid no trauma, anterior chamber clear. EARS: Pinnas intact and no signs of trauma or erythema. Ear canals clear and no discharge. TMs no erythema. NOSE: No discharge, no bleeding. OROPHARYNX: Mouth normal, teeth no caries, tongue pink. Pharynx clear, no erythema. Tonsils no exudates, no abscesses noted. Mucous membrane moist. NECK: Supple, non-tender, no thyromegaly, no masses, no JVD, no bruits. BREAST: Deferred. CHEST: No tenderness, no crepitus, no paradoxical movement, no retractions. LUNGS: Clear, well-ventilated, symmetric, no rales, no wheezing, no rhonchi, no stridor, good breath sounds bilaterally. HEART: Regular rate, regular rhythm, no murmur, no gallops. VASCULAR: No peripheral edema. ABDOMEN: Soft, positive bowel sounds, nondistended, no guarding, nontender, no rebound, no masses no hepatomegaly, no splenomegaly, no Orr's sign, no hernias. RECTAL: Deferred. GENITAL: Deferred. NEUROLOGICAL: Normal speech, gross motor function intact, gross sensory function intact. MUSCULOSKELETAL: Neck nontender, full range of motion, back nontender, full range of motion. EXTREMITIES: Nontender, full range of motion. SKIN: Color pink, dry, no turgor, no rash, no lacerations, no abrasions, no contusions. LYMPHATICS: Deferred. Results Laboratory and Microbiology Lab and Micro Result Laboratory Tests Test 12/17/24 17:59 12/17/24 19:00 Urine Color COLORLESS (YELLOW) Urine Appearance CLOUDY (CLEAR) H Urine pH 6.5 (5.0-8.0) Urine Specific Golden 1.000 (1.001-1.031) Urine Protein NEGATIVE mg/dL (NEGATIVE) Urine Glucose (UA) NEGATIVE mg/dL (NEGATIVE) Urine Ketones NEGATIVE mg/dL (NEGATIVE) Urine Occult Blood +- (TRACE) (NEGATIVE) H Urine Nitrate NEGATIVE (NEGATIVE) Urine Bilirubin NEGATIVE mg/dL (NEGATIVE) Urine Urobilinogen 0.2 mg/dL (0.2-1.0) Urine Leukocyte Esterase 500 Kirk/uL (NEGATIVE) H Urine RBC 6-10 /HPF (0-1) H Urine WBC 11-25 /HPF (0-1) H Urine Squamous Epithelial Cells RARE /HPF (0-2) Urine Bacteria RARE /HPF (None Seen) Urine Other Casts 1 /LPF (None Seen) Urine HCG, Qualitative NEGATIVE (NEGATIVE) White Blood Count 8.7 K/uL (4.8-10.8) Red Blood Count 3.70 MIL/uL (4.00-5.50) L Hemoglobin 11.3 g/dL (12.0-16.0) L Hematocrit 33.6 % (36-48) L Mean Corpuscular Volume 90.8 fL (79-99) Mean Corpuscular Hemoglobin 30.5 pg (27.0-33.0) Mean Corpuscular Hemoglobin Concent 33.6 g/dL (32.0-36.0) Red Cell Distribution Width 13.0 % (11.0-15.5) Platelet Count 293 K/uL (130-400) Mean Platelet Volume 9.6 fL (7.5-10.5) Immature Granulocyte % (Auto) 0.2 % (0-1) Neutrophils (%) (Auto) 64.0 % (40.0-77.0) Lymphocytes (%) (Auto) 28.9 % (21.0-51.0) Monocytes (%) (Auto) 4.9 % (3.0-13.0) Eosinophils (%) (Auto) 1.8 % (0.0-8.0) Basophils (%) (Auto) 0.2 % (0.0-5.0) Neutrophils # (Auto) 5.6 K/uL (1.8-7.7) Lymphocytes # (Auto) 2.5 K/uL (1.0-4.8) Monocytes # (Auto) 0.4 K/uL (0.1-1.0) Eosinophils # (Auto) 0.16 K/uL (0.00-0.70) Basophils # (Auto) 0.02 K/uL (0.00-0.20) Absolute Immature Granulocyte (auto 0.02 K/uL (0-1) Nucleated Red Blood Cells 0.0 % (0.0-0.19) Sodium Level 142 mmol/L (136-145) Potassium Level 3.6 mmol/L (3.5-5.1) Chloride Level 105 mmol/L (101-111) Carbon Dioxide Level 29 mmol/L (21-32) Blood Urea Nitrogen 6 mg/dL (7-18) L Creatinine 0.6 mg/dL (0.5-1.0) Glomerular Filtration Rate Calc 117 mL/min (>90) Random Glucose 93 mg/dL (70-105) Total Calcium 9.1 mg/dL (8.5-10.1) Total Bilirubin 0.7 mg/dL (0.2-1.0) Aspartate Amino Transf (AST/SGOT) 20 U/L (10-37) Alanine Aminotransferase (ALT/SGPT) 15 U/L (12-78) Alkaline Phosphatase 59 U/L (50-136) Total Creatine Kinase 37 U/L (21-232) Troponin I High Sensitivity < 4 ng/L (4-50) L Total Protein 7.0 g/dL (6.0-8.3) Albumin 3.4 g/dL (3.5-5.0) L Labs Reviewed?: Yes EKG/XRAY/US/CT/MRI EKG Comment 12/17/2024 time 6:27 p.m. Ventricular rate 83 Sinus rhythm MS [address] wave elevation or depression MDM MDM: Differential diagnosis: Rationale: Tests considered and ordered secondary to shared decision making include: Previous outside records reviewed: Old ER visits. Risk of complication and/or morbidity or mortality of patient management: None Medications-Per medication reconciliation Need for hospitalization: Patient does not meet criteria for hospitalization. Need for emergency major/minor surgery: No There are no social concerns with this patient. Prescription drug management Prescriptions will include symptomatic care Patient's prior external medical records from other ER visits were reviewed by me as indicated. Prior testing and results from previous visits were reviewed. Prior tests were taken into account with medical decision making and resource utilization, independent historian/historians were used to obtain complete medical history. I independently interpreted the test that were performed, results were reviewed by me and considered findings on radiology if ordered. Medical management and examination interpretation discussions were had by me with other qualified healthcare professionals as indicated for the patient's care. Unlikely be SBO patient says she has been stooling every day. It was soft normal. Unlikely to be biliary disease appendicitis. Stated that right upper quadrant no right upper quadrant pain no right lower quadrant pain no fevers no chills no nausea no vomiting. Likely they gas and pressure. From recent surgery. Likely be abscess. By said we can do labs test and CT to make sure there was no abscess or any other issues. No chest pain or shortness of breath. No other questions complaints concerns at this time. I updated the patient. To me I told her this likely hematoma. They then I updated her to on the read this is a hernia. Either way she was having intractable pain. There is a new hernia or had hernia started again. Otherwise so we will admit admitted to the hospital. At this time her abdomen is soft and no signs of peritonitis. Vitals are stable labs are stable. I told the patient I will give her another dose of pain medications I did speak to Dr. Lui at 9:20 p.m. ED Course Orders Procedure Category Date Status Time Cbc With Differential LAB 12/17/24 Complete 18:05 Comprehensive LAB 12/17/24 Complete Metabolic Panel 18:05 ,Urine Test LAB 12/17/24 Complete 18:05 Urinalysis Profile LAB 12/17/24 Complete 18:05 12 Lead Ekg Tracing- EKG 12/17/24 Logged Technical 18:05 Creatine Kinase, Total LAB 12/17/24 Complete 18:05 Ct Abdomen/Pelvis CT 12/17/24 Resulted W/Contrast 18:47 Troponin I High LAB 12/17/24 Complete Sensitivity 18:49 Hydrocodone/Apap PHA 12/17/24 Complete 5/325 (Leighton 5/325mg) 19:00 Culture Urine SONIYA 12/17/24 In Process 19:17 Iohexol (Omnipaque) PHA 12/17/24 Complete 19:53 Ceftriaxone 1g Vial PHA 12/17/24 Complete (Rocephine 1g Inj) 20:30 Morphine 4mg Syg PHA 12/17/24 Complete (Morphine 4mg Syg) 21:00 Current Medications Medications (Trade) Dose Ordered Sig/Dawn Route PRN Reason Start Time Stop Time Status Last Admin Dose Admin Acetaminophen/ Hydrocodone Bitart (NORco 5/325MG) 1 tab ONCE ONCE PO 12/17/24 19:00 12/17/24 19:01 DC 12/17/24 19:07 Ceftriaxone Sodium (ROCEphine 1G INJ) 1 gm ONCE ONCE IVPB 12/17/24 20:30 12/17/24 20:31 DC 12/17/24 20:38 Iohexol (Omnipaque) 35,000 mg STK-MED ONCE IV 12/17/24 19:53 12/17/24 19:53 DC Morphine Sulfate (morPHINE 4MG SYG) 4 mg ONCE ONCE IVP 12/17/24 21:00 12/17/24 21:01 DC 12/17/24 20:54 Vital Signs Date Time Temp Pulse Resp B/P (MAP) Pulse Ox O2 Delivery O2 Flow Rate FiO2 12/17/24 18:18 98.4 86 19 130/77 100 Room Air* 0 21 12/17/24 17:51 98.8 84 20 129/88 99 Room Air DX & DISP Disposition: Inpatient Departure Impression: Primary Impression: Abdominal pain Condition: Stable Scripts No Active Prescriptions or Reported Meds Referrals: TIMOTHY MAHAN (PCP) JONAH BERRY MD Dec 17, 2024 18:46 KHADIJAH CESAR MD Dec 17, 2024 19:20
[2024-12-17 19:05] LABS: APPEARANCE,URINE CLOUDY (CLEAR); BILIRUBIN,URINE NEGATIVE (NEGATIVE); COLOR,URINE COLORLESS (YELLOW); GLUCOSE, URINE (UA) NEGATIVE (NEGATIVE); KETONES,URINE NEGATIVE (NEGATIVE); LEUKOCYTE ESTERASE ,URINE 500 Leu/uL (NEGATIVE); NITRATE,URINE NEGATIVE (NEGATIVE); PH,URINE 6.5 (5.0-8.0); PROTEIN,URINE NEGATIVE (NEGATIVE); UROBILINOGEN,URINE 0.2 mg/dL (0.2-1.0)
[2024-12-17] MEDS: HYDROcodone/APAP 5/325 1 TAB TABLET PO ONE (19:07)
--- NOTE | 2024-12-17 19:10 | NUR ---
REPORT ENDORSED TO BALWINDER CAMARGO
[2024-12-17 19:17] LABS: BASOPHILS # (AUTO) 0.02 K/uL (0.00-0.20); BASOPHILS % (AUTO) 0.2 % (0.0-5.0); CREATININE 0.6 mg/dL (0.5-1.0); EOSINOPHILS # (AUTO) 0.16 K/uL (0.00-0.70); EOSINOPHILS % (AUTO) 1.8 % (0.0-8.0); HEMATOCRIT 33.6 % (36-48); IMMATURE GRANULOCYTE ABSOLUTE 0.02 K/uL (0-1); LYMPHOCYTES # (AUTO) 2.5 K/uL (1.0-4.8); LYMPHOCYTES % (AUTO) 28.9 % (21.0-51.0); MEAN CORPUSCULAR HEMOGLOBIN 30.5 pg (27.0-33.0); MEAN CORPUSCULAR HGB CONC 33.6 g/dL (32.0-36.0); MEAN CORPUSCULAR VOLUME 90.8 fL (79-99); MONOCYTES # (AUTO) 0.4 K/uL (0.1-1.0); MONOCYTES % (AUTO) 4.9 % (3.0-13.0); NEUTROPHILS # (AUTO) 5.6 K/uL (1.8-7.7); PLATELET COUNT (AUTO) 293 K/uL (130-400); POTASSIUM 3.6 mmol/L (3.5-5.1); WHITE BLOOD COUNT (AUTO) 8.7 K/uL (4.8-10.8)
[2024-12-17 19:17] LABS: ADD UA MICROSCOPIC YES
[2024-12-17 19:21] LABS: ALBUMIN 3.4 g/dL (3.5-5.0); BILIRUBIN,TOTAL 0.7 mg/dL (0.2-1.0)
[2024-12-17 19:25] LABS: HCG,QUALITATIVE URINE NEGATIVE (NEGATIVE)
[2024-12-17 19:26] LABS: BACTERIA,URINE RARE /HPF (None Seen); OTHER CASTS, URINE 1 /LPF (None Seen); SQUAMOUS EPITHELIAL CELL,UR RARE /HPF (0-2)
[2024-12-17] MEDS ORDERED: IOHEXOL 350 MG/ML 100ML INFUS..BTL IV ONE (19:53)
--- NOTE | 2024-12-17 20:25 | HMCIMG ---
CT ABDOMEN/PELVIS W/CONTRAST HISTORY: Right upper quadrant pain COMPARISON: 11/20/2024 TECHNIQUE: Multiple sequential axial images of the abdomen and pelvis were obtained from the dome of the diaphragm through symphysis pubis. Patient was given 100 cc of Omnipaque through intravenous route. Oral contrast was not given. FINDINGS: No pleural effusion is seen bilaterally. There is no evidence of parenchymal disease or pulmonary nodule of the visualized lower lungs. Degenerative changes of the thoracolumbar spine are present. The heart is not enlarged. Liver measures 16 cm. Postcholecystectomy changes. There is small periumbilical ventral hernia with fat content and questionable bowel content. Intraventricular changes may be related to recent surgery there is right ovarian cyst measuring 3.4 cm. T-shaped intrauterine device is seen. The liver, spleen, adrenal glands and pancreas are unremarkable. There is no evidence of hydronephrosis bilaterally. No evidence of renal stone is seen. Fecal material is seen in the colon. There are normal size retroperitoneal and mesenteric lymph nodes. No ascites is seen. No CT evidence of acute appendicitis. Pelvic sidewalls are symmetric bilaterally. Bladder is well distended without wall thickening. IMPRESSION: 1. There is small periumbilical ventral hernia with fat content and questionable bowel content. Intraventricular changes may be related to recent surgery there is right ovarian cyst measuring 3.4 cm. T-shaped intrauterine device is seen. CT was performed with one or more following dose reduction techniques: automated exposure control, adjustment of the mA and kv according to patient's size, or use of a iterative reconstruction technique.
[2024-12-17] MEDS: cefTRIAXone 1G VIAL IVPB ONE (20:38)
[2024-12-17] MEDS: morPHINE 4 MG SYG IVP ONE (20:54)
--- NOTE | 2024-12-17 21:39 | NUR ---
PATIENT REPORTS SHE DOES NOT TAKE ANY PRESCRIBED MEDICATIONS
--- NOTE | 2024-12-17 22:06 | HP ---
[facility] HISTORY [facility] PHYSICAL Date of Service: Dec 17, 2024 Time of Service: 22:06 PCP Dylan Duffy HISTORY OF PRESENT ILLNESS: This is a 39-year-old female with past medical history of pancreatitis and umbilical hernia who presents to the ED for evaluation of abdominal pain which started around 8 pm yesterday.Patient states she underwent and umbilical hernia repair with mesh on 12/13/2024 performed by and was discharged home on 12/14/2024 and since discharge patient was experiencing abdominal pain initially tolerable and she thought it was part of the recent procedure however patient felt that pain is getting more severe , she is having chills and nausea but no vomiting so she called the office of and was instructed by staff to come to the ED if pain is intolerable,thus prompted this admission. Seen and examined patient in the ER awake alert and coherent appears uncomfortab le. Patient denies fever, diarrhea, vomiting, chest pain, cough and shortness of breaths. Vital signs temperature 98.4, heart rate 77, blood pressure 124/85 saturation 100% on room air. Labs hemoglobin 11, hematocrit 33, platelet count 293. Chemistries unremarkable troponin less than four albumin 3.4. Urinalysis consistent with urinary tract infection. CT abdomen and pelvis with contrast result revealed there is small periumbilical ventral hernia with fat content and questionable bowel content. Intraventricular changes may be related to recent surgery there is right ovarian cyst measuring 3.4 cm. T-shaped intrauterine device is seen. While in the ER patient received hydrocodone one tab, Rocephin 1 g IV and morphine 4 mg IV. As per ER doctor, general surgeon Dr. Ho was already notified regarding the patient. We will admit patient for further medical management. REVIEW OF SYSTEMS CONSTITUTIONAL: Positive chills Denies fevers, r night sweats. No unintentional weight loss reported. NEUROLOGICAL: Denies headache, amaurosis fugax, motor weakness, sensory d eficit, vertigo/spinning sensation, gait abnormalities, or tremors. ENT: No hearing loss, otalgia, otorrhea, rhinitis, rhinorrhea, hoarseness, or sore throat. CARDIOVASCULAR: Denies any exertional angina, dyspnea on exertion, orthopnea, paroxysmal nocturnal dyspnea, palpitations, life-threatening arrhythmias, claudication. PULMONARY: Denies any shortness of breath, cough, phlegm/sputum, hemoptysis, pleuritic chest pain. SLEEP: Denies morning headaches, daytime somnolence or napping. Denies difficulty falling asleep, staying asleep, waking from sleep. Denies knowledge of snoring. GASTROINTESTINAL: Positive abdominal pain and nausea Denies any type of dysphagia to either liquids or solids. Denies vomiting, pyrosis, early satiety, diarrhea, constipation, or changes in stool consistency or caliber. Denies coffee-ground emesis, hematemesis, hematochezia, or melanotic stools. GENITOURINARY: Denies frequency, urgency, nocturia, hematuria or incontinence (Storage/Irritative symptoms.) Low urinary stream, straining to void, urinary intermittency or hesitancy, splitting of the voiding stream, terminal dribbling. ENDOCRINOLOGIC: Denies polyuria, polydipsia, polyphagia or heat/cold intolerances. HEMATOLOGIC: Denies thrombophilia/previous clots, or coagulopathy/bleeding disorders. ONCOLOGIC: Denies personal history of malignancy. DERMATOLOGIC: Denies rashes or pruritus. PSYCHIATRIC: Denies any suicidal or homicidal ideation. Denies hallucinations. PAST MEDICAL HISTORY: [Pancreatitis and umbilical hernia ] PAST SURGICAL HISTORY: [Status post umbilical hernia repair with mesh on 12/13/[address] Ho ] PAST SOCIAL HISTORY: [Patient lives with kids. Patient denies alcohol tobacco and recreational drug use ] FAMILY HISTORY: [Hypertension and diabetes ] Coded Allergies: No Known Drug Allergies (Unverified Allergy, Unknown, 09/21/18) PHYSICAL EXAM GENERAL APPEARANCE: The patient is awake, alert, and oriented, in no acute cardiopulmonary distress. NEUROLOGICAL: Cranial nerves II-XII grossly intact. Motor is 5/5 in bilateral upper and lower extremities proximal to distal. No sensory deficits. HEENT: Face is symmetric. Pupils are equal and reactive. Extraocular movements are intact. NECK: Supple. No JVD. No thyromegaly. No submental, submandibular, pre- /postauricular, occipital or supraclavicular lymphadenopathy. CHEST: Normal chest expansion. No Telemetry. LUNGS: Absence of any rales, rhonchi or any wheezing. CARDIOVASCULAR: Regular. S1 and S2 normal. No appreciable rubs, murmurs or gallops. ABDOMEN: Diffuse abdominal tenderness on palpation Soft and nondistended. There is no rebound, voluntary guarding, or rigidity. : Deferred. No Alvarado. EXTREMITIES: Non-edematous and not cyanotic. No clubbing. Good capillary refill. SKIN: No skin breakdown. Vital Sign (Last 24 Hours) 12/17/24 21:42 Temp 98.4 Pulse 77 Resp 18 B/P (MAP) 124/85 Pulse Ox 100 O2 Delivery Room Air* O2 Flow Rate 0 FiO2 21 LABS: Laboratory: Test 12/17/24 19:00 12/17/24 17:59 Range/Units White Blood Count 8.7 4.8-10.8 K/uL Red Blood Count 3.70 L 4.00-5.50 MIL/uL Hemoglobin 11.3 L 12.0-16.0 g/dL Hematocrit 33.6 L 36-48 % Mean Corpuscular Volume 90.8 79-99 fL Mean Corpuscular Hemoglobin 30.5 27.0-33.0 pg Mean Corpuscular Hemoglobin Concent 33.6 32.0-36.0 g/dL Red Cell Distribution Width 13.0 11.0-15.5 % Platelet Count 293 130-400 K/uL Mean Platelet Volume 9.6 7.5-10.5 fL Immature Granulocyte % (Auto) 0.2 0-1 % Neutrophils (%) (Auto) 64.0 40.0-77.0 % Lymphocytes (%) (Auto) 28.9 21.0-51.0 % Monocytes (%) (Auto) 4.9 3.0-13.0 % Eosinophils (%) (Auto) 1.8 0.0-8.0 % Basophils (%) (Auto) 0.2 0.0-5.0 % Neutrophils # (Auto) 5.6 1.8-7.7 K/uL Lymphocytes # (Auto) 2.5 1.0-4.8 K/uL Monocytes # (Auto) 0.4 0.1-1.0 K/uL Eosinophils # (Auto) 0.16 0.00-0.70 K/uL Basophils # (Auto) 0.02 0.00-0.20 K/uL Absolute Immature Granulocyte (auto 0.02 0-1 K/uL Nucleated Red Blood Cells 0.0 0.0-0.19 % Sodium Level 142 136-145 mmol/L Potassium Level 3.6 3.5-5.1 mmol/L Chloride Level 105 101-111 mmol/L Carbon Dioxide Level 29 21-32 mmol/L Blood Urea Nitrogen 6 L 7-18 mg/dL Creatinine 0.6 0.5-1.0 mg/dL Glomerular Filtration Rate Calc 117 >90 mL/min Random Glucose 93 70-105 mg/dL Total Calcium 9.1 8.5-10.1 mg/dL Total Bilirubin 0.7 0.2-1.0 mg/dL Aspartate Amino Transf (AST/SGOT) 20 10-37 U/L Alanine Aminotransferase (ALT/SGPT) 15 12-78 U/L Alkaline Phosphatase 59 50-136 U/L Total Creatine Kinase 37 21-232 U/L Troponin I High Sensitivity < 4 L 4-50 ng/L Total Protein 7.0 6.0-8.3 g/dL Albumin 3.4 L 3.5-5.0 g/dL Urine Color COLORLESS YELLOW Urine Appearance CLOUDY H CLEAR Urine pH 6.5 5.0-8.0 Urine Specific [place] 1.000 1.001-1.031 Urine Protein NEGATIVE NEGATIVE mg/dL Urine Glucose (UA) NEGATIVE NEGATIVE mg/dL Urine Ketones NEGATIVE NEGATIVE mg/dL Urine Occult Blood +- (TRACE) H NEGATIVE Urine Nitrate NEGATIVE NEGATIVE Urine Bilirubin NEGATIVE NEGATIVE mg/dL Urine Urobilinogen 0.2 0.2-1.0 mg/dL Urine Leukocyte Esterase 500 H NEGATIVE Kirk/uL Urine RBC 6-10 H 0-1 /HPF Urine WBC 11-25 H 0-1 /HPF Urine Squamous Epithelial Cells RARE 0-2 /HPF Urine Bacteria RARE None Seen /HPF Urine Other Casts 1 None Seen /LPF Urine HCG, Qualitative NEGATIVE NEGATIVE DIAGNOSTICS / RADIOLOGY: [ ] ASSESSMENT: Intractable abdominal pain POA Recent status post umbilical hernia repair with mesh POA Acute normocytic normochromic anemia POA Acute urinary tract infection POA PLAN: We will admit patient in medical-surgical floor We will keep patient nothing by mouth We will start NS @ 100 ml / hr and re evaluate We will start patient on Rocephin 1 g IV b.i.d. for empiric coverage We will start on Famotidine 20 mg IV bid for GI prophylaxis We will replace electrolytes as needed per protocol We will add prn medication for fever,pain,cough, nausea and vomiting General surgery consulted pending evaluation We will request labs in am Further orders to follow depending on above results Case discussed with attending physician and came up with above treatment and plan of care. ADVANCED CARE PLANNING 1. Which of the following were discussed? Hospice Care - No Therapeutic options - Yes Advance Directives - No Other discussions - 2. Discussed with who? Patient 3. Voluntary nature of this service was explained to the patient? Yes 4. Amount of time spent - _20 5. Reviewed by Physician? (if this service was performed by NPP) Yes Patient seen and examined by me. Agree with note by CT MANAGER SEE ADDITIONAL ORDERS PER CHART DISCUSSED WITH NURSING STAFF SAY VILLALTA [employer] Dec 17, 2024 22:06
[2024-12-17] MEDS: 0.9%NACL 1000ML 1,000 ML IV SCH (22:28)
[2024-12-17] MEDS ORDERED: acetaMINOPHEN 325 MG TAB PO PRN ×2 (22:30)
[2024-12-18 00:40] VITALS: BP 129/88; PULSE 67; RESP 20; TEMP 98.3; O2SAT 98
--- NOTE | 2024-12-18 00:40 | NUR ---
arrival report received by hema leiva lvn patient arrived to room 304. patient alert and oriented times 4. plan of care discussed with her and she verbalized understanding. patient is ambulatory to the restroom. She has 5 incisions on her abdomen with steri strips and abdominal binder and pictures were taken via ipad. Patient is having severe pain tonight relieved by morphine. She has some nausea but no vomiting yet. Call light within reach, bed alarm on, 2 side rails up. will continue to monitor patient.
[2024-12-18] MEDS ORDERED: IBUP-2077 PO ×2 (01:02)
[2024-12-18] MEDS: ondanSETRON 4MG INJ IV PRN (01:05)
[2024-12-18] MEDS: morPHINE 2 MG SYG IV PRN (01:05)
[2024-12-18 03:58] VITALS: BP 116/77; PULSE 89; RESP 20; TEMP 98.3
[2024-12-18 05:33] LABS: BASOPHILS # (AUTO) 0.04 K/uL (0.00-0.20); BASOPHILS % (AUTO) 0.4 % (0.0-5.0); EOSINOPHILS # (AUTO) 0.23 K/uL (0.00-0.70); EOSINOPHILS % (AUTO) 2.3 % (0.0-8.0); HEMATOCRIT 33.8 % (36-48); IMMATURE GRANULOCYTE ABSOLUTE 0.05 K/uL (0-1); LYMPHOCYTES # (AUTO) 3.3 K/uL (1.0-4.8); LYMPHOCYTES % (AUTO) 32.1 % (21.0-51.0); MEAN CORPUSCULAR VOLUME 91.1 fL (79-99); MONOCYTES # (AUTO) 0.5 K/uL (0.1-1.0); NEUTROPHILS # (AUTO) 6.1 K/uL (1.8-7.7); NEUTROPHILS % (AUTO) 59.7 % (40.0-77.0); PLATELET COUNT (AUTO) 277 K/uL (130-400); RED BLOOD CELL COUNT(AUTO) 3.71 MIL/uL (4.00-5.50); RED CELL DISTRIBUTION WIDTH 13.1 % (11.0-15.5); WHITE BLOOD COUNT (AUTO) 10.1 K/uL (4.8-10.8)
[2024-12-18 05:52] LABS: ALBUMIN 3.2 g/dL (3.5-5.0); BILIRUBIN,TOTAL 0.9 mg/dL (0.2-1.0); CREATININE 0.6 mg/dL (0.5-1.0); MAGNESIUM 2.1 mg/dL (1.80-2.40); POTASSIUM 3.8 mmol/L (3.5-5.1); TOTAL PROTEIN, SERUM 6.7 g/dL (6.0-8.3)
--- NOTE | 2024-12-18 06:12 | NUR ---
general surgery the ER doctor texted dr. warren on 12/17/24 at [address] warren and NANCY huston at this time for consult. pending reply
--- NOTE | 2024-12-18 06:17 | PN ---
[facility] PROGRESS NOTE Date of Service: Dec 18, 2024 Time of Service: 06:11 SUBJECTIVE: [ ] This is a 39-year-old female with past medical history of pancreatitis and umbilical hernia who presents to the ED for evaluation of abdominal pain which started around 8 pm yesterday.Patient states she underwent and umbilical hernia repair with mesh on 12/13/2024 performed by and was discharged home on 12/14/2024 and since discharge patient was experiencing abdominal pain initially tolerable and she thought it was part of the recent procedure however patient felt that pain is getting more severe , she is having chills and nausea but no vomiting so she called the office of and was instructed by staff to come to the ED if pain is intolerable,thus prompted this admission. 12/18/24 REVIEW OF SYSTEMS CONSTITUTIONAL: Positive chills Denies fevers, r night sweats. No unintentional weight loss reported. NEUROLOGICAL: Denies headache, amaurosis fugax, motor weakness, sensory deficit, vertigo/spinning sensation, gait abnormalities, or tremors. ENT: No hearing loss, otalgia, otorrhea, rhinitis, rhinorrhea, hoarseness, or sore throat. CARDIOVASCULAR: Denies any exertional angina, dyspnea on exertion, orthopnea, paroxysmal nocturnal dyspnea, palpitations, life-threatening arrhythmias, claudication. PULMONARY: Denies any shortness of breath, cough, phlegm/sputum, hemoptysis, pl euritic chest pain. SLEEP: Denies morning headaches, daytime somnolence or napping. Denies difficulty falling asleep, staying asleep, waking from sleep. Denies knowledge of snoring. GASTROINTESTINAL: Positive abdominal pain and nausea Denies any type of dysphagia to either liquids or solids. Denies vomiting, pyrosis, early sa tiety, diarrhea, constipation, or changes in stool consistency or caliber. Denies coffee-ground emesis, hematemesis, hematochezia, or melanotic stools. GENITOURINARY: Denies frequency, urgency, nocturia, hematuria or incontinence (Storage/Irritative symptoms.) Low urinary stream, straining to void, urinary intermittency or hesitancy, splitting of the voiding stream, terminal dribbling. ENDOCRINOLOGIC: Denies polyuria, polydipsia, polyphagia or heat/cold intolerances. HEMATOLOGIC: Denies thrombophilia/previous clots, or coagulopathy/bleeding disorders. ONCOLOGIC: Denies personal history of malignancy. DERMATOLOGIC: Denies rashes or pruritus. PSYCHIATRIC: Denies any suicidal or homicidal ideation. Denies hallucinations. PHYSICAL EXAM GENERAL APPEARANCE: The patient is awake, alert, and oriented, in no acute cardiopulmonary distress. NEUROLOGICAL: Cranial nerves II-XII grossly intact. Motor is 5/5 in bilateral upper and lower extremities proximal to distal. No sensory deficits. HEENT: Face is symmetric. Pupils are equal and reactive. Extraocular movements are intact. NECK: Supple. No JVD. No thyromegaly. No submental, submandibular, pre- /postauricular, occipital or supraclavicular lymphadenopathy. CHEST: Normal chest expansion. No Telemetry. LUNGS: Absence of any rales, rhonchi or any wheezing. CARDIOVASCULAR: Regular. S1 and S2 normal. No appreciable rubs, murmurs or gallops. ABDOMEN: Diffuse abdominal tenderness on palpation Soft and nondistended. There is no rebound, voluntary guarding, or rigidity. : Deferred. No Alvarado. EXTREMITIES: Non-edematous and not cyanotic. No clubbing. Good capillary refill. SKIN: No skin breakdown. Vital Signs (last 8hr) Date Time Temp Pulse Resp B/P (MAP) Pulse Ox O2 Delivery O2 Flow Rate FiO2 12/18/24 03:58 98.2 89 20 116/77 98 Room Air 12/18/24 00:40 98.2 67 20 129/88 100 Room Air 12/18/24 00:40 98 Room Air* 0 21 12/17/24 23:52 98.4 73 17 122/75 98 Room Air* 0 21 LABS: Laboratory: Test 12/18/24 05:07 12/17/24 19:00 12/17/24 17:59 Range/Units White Blood Count 10.1 4.8-10.8 K/uL Red Blood Count 3.71 L 4.00-5.50 MIL/uL Hemoglobin 11.5 L 12.0-16.0 g/dL Hematocrit 33.8 L 36-48 % Mean Corpuscular Volume 91.1 79-99 fL Mean Corpuscular Hemoglobin 31.0 27.0-33.0 pg Mean Corpuscular Hemoglobin Concent 34.0 32.0-36.0 g/dL Red Cell Distribution Width 13.1 11.0-15.5 % Platelet Count 277 130-400 K/uL Mean Platelet Volume 9.8 7.5-10.5 fL Immature Granulocyte % (Auto) 0.5 0-1 % Neutrophils (%) (Auto) 59.7 40.0-77.0 % Lymphocytes (%) (Auto) 32.1 21.0-51.0 % Monocytes (%) (Auto) 5.0 3.0-13.0 % Eosinophils (%) (Auto) 2.3 0.0-8.0 % Basophils (%) (Auto) 0.4 0.0-5.0 % Neutrophils # (Auto) 6.1 1.8-7.7 K/uL Lymphocytes # (Auto) 3.3 1.0-4.8 K/uL Monocytes # (Auto) 0.5 0.1-1.0 K/uL Eosinophils # (Auto) 0.23 0.00-0.70 K/uL Basophils # (Auto) 0.04 0.00-0.20 K/uL Absolute Immature Granulocyte (auto 0.05 0-1 K/uL Nucleated Red Blood Cells 0.0 0.0-0.19 % Sodium Level 140 136-145 mmol/L Potassium Level 3.8 3.5-5.1 mmol/L Chloride Level 107 101-111 mmol/L Carbon Dioxide Level 28 21-32 mmol/L Blood Urea Nitrogen 6 L 7-18 mg/dL Creatinine 0.6 0.5-1.0 mg/dL Glomerular Filtration Rate Calc 117 >90 mL/min Random Glucose 91 70-105 mg/dL Total Calcium 8.8 8.5-10.1 mg/dL Magnesium Level 2.10 1.80-2.40 mg/dL Total Bilirubin 0.9 # 0.2-1.0 mg/dL Aspartate Amino Transf (AST/SGOT) 11 10-37 U/L Alanine Aminotransferase (ALT/SGPT) 15 12-78 U/L Alkaline Phosphatase 56 50-136 U/L Total Protein 6.7 6.0-8.3 g/dL Albumin 3.2 L 3.5-5.0 g/dL Total Creatine Kinase 37 21-232 U/L Troponin I High Sensitivity < 4 L 4-50 ng/L Urine Color COLORLESS YELLOW Urine Appearance CLOUDY H CLEAR Urine pH 6.5 5.0-8.0 Urine Specific [place] 1.000 1.001-1.031 Urine Protein NEGATIVE NEGATIVE mg/dL Urine Glucose (UA) NEGATIVE NEGATIVE mg/dL Urine Ketones NEGATIVE NEGATIVE mg/dL Urine Occult Blood +- (TRACE) H NEGATIVE Urine Nitrate NEGATIVE NEGATIVE Urine Bilirubin NEGATIVE NEGATIVE mg/dL Urine Urobilinogen 0.2 0.2-1.0 mg/dL Urine Leukocyte Esterase 500 H NEGATIVE Kirk/uL Urine RBC 6-10 H 0-1 /HPF Urine WBC 11-25 H 0-1 /HPF Urine Squamous Epithelial Cells RARE 0-2 /HPF Urine Bacteria RARE None Seen /HPF Urine Other Casts 1 None Seen /LPF Urine HCG, Qualitative NEGATIVE NEGATIVE Current Medications Medications (Trade) Dose Ordered Sig/Dawn Route PRN Reason Start Time Stop Time Status Last Admin Dose Admin Acetaminophen (TYLenol 325MG TAB) 650 mg Q4H PRN PO MILD PAIN (1-3) 12/17/24 22:30 01/16/25 22:29 Acetaminophen (TYLenol 325MG TAB) 650 mg Q6H PRN PO TEMPERATURE GREATER THAN 101.5 12/17/24 22:30 01/16/25 22:29 Ceftriaxone Sodium 1 gm/ Sodium Chloride 50 ml @ 100 mls/hr BID IV 12/18/24 09:00 12/17/24 22:16 DC Ceftriaxone Sodium (ROCEphine 1G INJ) 1 gm Q12H IVPB 12/17/24 08:00 12/27/24 07:59 Famotidine (Pepcid 20mg Vial) 20 mg BID IV 12/18/24 09:00 01/17/25 08:59 Morphine Sulfate (morPHINE 2MG SYG) 2 mg Q4H PRN IV MODERATE PAIN (4-6) 12/17/24 22:30 12/24/24 22:29 12/18/24 01:05 2 MG Ondansetron HCl (zoFRAN 4MG INJ) 4 mg Q6H PRN IV NAUSEA/VOMITING 12/17/24 22:30 01/16/25 22:29 12/18/24 01:05 4 MG Sodium Chloride 1,000 ml @ 100 mls/hr Q10H IV 12/17/24 22:30 01/16/25 22:29 12/17/24 22:28 100 MLS/HR DIAGNOSTICS / RADIOLOGY: [ ] ASSESSMENT: Intractable abdominal pain POA Recent status post umbilical hernia repair with mesh POA Acute normocytic normochromic anemia POA Acute urinary tract infection POA PLAN: Admit:medical surgical floor condition: fair Status:Full code IVF:LR at 100 ml/hr Consultants: None Antibiotics:Rocephin 1 gm q12 hr Test:urine cultures in process Labs cbc, cmp, mag+ in am Replace electrolytes as needed as per protocol to keep potassium above 4.0 magnesium 2.0. cont Tylenol 650 mg po every 4 hrs for fever Pain management:Morphine 2mg IV as needed Supportive measures: DVT ppx, GI ppx all questions answered Supervising MD: c/d This document was generated in part using voice recognition software, occasional wrong word or sound alike substitutions may have occurred due to the inherent limitations of voice recognition software. Read the chart carefully and recognize using context, where the substitutions have occurred. Although every effort was made to edit the content, gritting machine operator and typing errors may occur ATTESTATION BY PHYSICIAN I have seen and examined the patient. I reviewed the documentation, medical decision making, and treatment plan as noted by the mid-level provider above. I agree with the findings and plan of care. ZHAO ROSE MD, ELIZABETH NP Dec 18, 2024 06:17
[2024-12-18] MEDS: PoTASSium chloRIDE 20MEQ/100ML 100 ML IV PRN (06:25)
[2024-12-18] MEDS ORDERED: PoTASSium chl 10% ELIXIR 20MEQ 20 MEQ/15 ML UDCUP PO PRN (06:30)
[2024-12-18] MEDS ORDERED: MAGNESIUM 2GM PREMIX 50ML 50 ML IV PRN (06:30)
[2024-12-18] MEDS ORDERED: PoTASSium chloRIDE 20MEQ ER 20 MEQ ERTAB PO PRN (06:30)
[2024-12-18 08:00] VITALS: BP 117/77; PULSE 75; RESP 18; TEMP 98.1
--- NOTE | 2024-12-18 08:37 | EKG ---
[facility] Test Date: 2024-12-17 Test Time: 18:27:17 Pat Name: HERMELINDA HOLDER Department: 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
[2024-12-18] MEDS: FAMOTIDINE 20MG VIAL IV SCH (08:46)
[2024-12-18 09:00] VITALS: O2SAT 99
[2024-12-18] MEDS ORDERED: cefTRIAXone 1G VIAL 1 GM in 0.9%NACL 50ML 50 ML IV SCH (09:00)
[2024-12-18] MEDS: traMADol HCL 50 MG TABLET PO PRN (09:35)
--- NOTE | 2024-12-18 09:54 | DS ---
Discharge Summary Hospital Course Summary: This is a 39-year-old female with past medical history of pancreatitis and umbilical hernia who presents to the ED for evaluation of abdominal pain which started around 8 pm yesterday.Patient states she underwent and umbilical hernia repair with mesh on 12/13/2024 performed by and was discharged home on 12/14/2024 and since discharge patient was experiencing abdominal pain initially tolerable and she thought it was part of the recent procedure however patient felt that pain is getting more severe , she is having chills and nausea but no vomiting so she called the office of and was instructed by staff to come to the ED if pain is intolerable,thus prompted this admission. 12/18/24 patient was evaluated by surgeon cleared patient for discharge we will follow-up in his office one-week. Patient is tolerating diet nausea and vomiting. UTI patient will be discharged on antibiotics cefdinir 300 mg p.o. b.i.d. x7 days. Patient is clinically stable for discharge. Procedure(s): REASON: LEFT UPPER QUADRANT PAIN. HAD UMBILICAL HERNIA SURGERY MONDAY. ORDERING PHYSICIAN: KHADIJAH CESAR MD PROCEDURE: ABD PEL W - CT ABDOMEN/PELVIS W/CONTRAST CT ABDOMEN/PELVIS W/CONTRAST HISTORY: Right upper quadrant pain COMPARISON: 11/20/2024 TECHNIQUE: Multiple sequential axial images of the abdomen and pelvis were obtained from the dome of the diaphragm through symphysis pubis. Patient was given 100 cc of Omnipaque through intravenous route. Oral contrast was not given. FINDINGS: No pleural effusion is seen bilaterally. There is no evidence of parenchymal disease or pulmonary nodule of the visualized lower lungs. Degenerative changes of the thoracolumbar spine are present. The heart is not enlarged. Liver measures 16 cm. Postcholecystectomy changes. There is small periumbilical ventral hernia with fat content and questionable bowel content. Intraventricular changes may be related to recent surgery there is right ovarian cyst measuring 3.4 cm. T-shaped intrauterine device is seen. The liver, spleen, adrenal glands and pancreas are unremarkable. There is no evidence of hydronephrosis bilaterally. No evidence of renal stone is seen. Fecal material is seen in the colon. There are normal size retroperitoneal and mesenteric lymph nodes. No ascites is seen. No CT evidence of acute appendicitis. Pelvic sidewalls are symmetric bilaterally. Bladder is well distended without wall thickening. IMPRESSION: 1. There is small periumbilical ventral hernia with fat content and questionable bowel content. Intraventricular changes may be related to recent surgery there is right ovarian cyst measuring 3.4 cm. T-shaped intrauterine device is seen. Assessment/Plan: discharged dx's: Intractable abdominal pain POA improved Recent status post umbilical hernia repair with mesh POA Acute normocytic normochromic anemia POA Acute urinary tract infection POA PLAN: ADMISSION DATE: 12/17/24 DISCHARGE DATE: 12/18/2024 DISPOSITION: Home CONDITION: stable ORDER FULFILLMENT SPECIALIST(S): General surgeon: DR warren one week FOLLOW UP APPOINTMENT(S): Dr. Warren one wk as directed PROCEDURES: umbilical hernia repair with mesh on 12/13/2024 performed by IMAGING (S) report attached to summary : MICROBIOLOGY: report attached to summary; ACTIVITY: ab luz HOME MEDICATIONS ibuprofen 800 mg p.o. as directed for pain CHANGES ON HOME MEDICATIONS none NEW MEDICATIONS cefdinir 300 mg po bid for 7 days. TEACHING: Encouraged patient to continue ambulating no heavy lifting as directed by general surgeon. Emergency instructions: The patient was instructed to present to the nearest Emergency Department or call 911 should their symptoms return or worsen. Home Medications: Reported Medications Ibuprofen (Ibuprofen 800 mg Tab) 800 Mg Tab, 1 TAB PO Q6HPRN PRN for PAIN LEVEL 1 TO 5 for 30 Days, #90 TAB 0 Refills 12/18/24 New Medications: Cefdinir (Cefdinir) 300 Mg Capsule 1 CAP PO BID for 7 Days, #14 CAP 0 Refills Continued Medications: Ibuprofen (Ibuprofen 800 mg Tab) 800 Mg Tab 1 TAB PO Q6HPRN PRN for PAIN LEVEL 1 TO 5 for 30 Days, #90 TAB 0 Refills Time spent arranging discharge: 31-60 minutes ATTESTATION BY PHYSICIAN I have seen and examined the patient. I reviewed the documentation, medical decision making, and treatment plan as noted by the mid-level provider above. I agree with the findings and plan of care. ZHAO ROSE MD, ELIZABETH NP Dec 18, 2024 09:54
[2024-12-18] MEDS ORDERED: CEFD300C3 PO ×2 (10:25)
[2024-12-18 12:00] VITALS: BP 124/69; PULSE 85; RESP 18; TEMP 97.6
--- NOTE | 2024-12-18 12:42 | NUR ---
DCP -- Home Patient states she lives alone with two children in a mobile home with a ramp entrance and walk in shower with bench. Receives $583 in food assistance. States she is unemployed, remains independent and drives self. States able to complete ADL's prior to surgery. States she has a bedside commode. Denies home health services, home are provide or dialysis. PCP - Clive Richardson MD Pharmacy - [facility]. Upon discharge, states Daniel Espinosa & Whitney Espinosa, Father/Mother [phone] and assist with care, as needed. MD [place] - status post hernia repair with Dr. Lui on 12/13/2024. Addendum: 12/18/24 at 1250 by MARIELA VARGAS RN CM Amended: Links added.
--- NOTE | 2024-12-18 14:37 | HMCIMG ---
CHEST 1VW HISTORY: Shortness of breath COMPARISON: None FINDINGS: A frontal projection of the chest was obtained. No acute pulmonary infiltrates is seen. The heart is normal in size. Prominent interstitial markings are seen. No evidence of aortic calcification is seen. IMPRESSION: 1. No acute pulmonary infiltrate is seen.
[2024-12-18 16:00] VITALS: BP 119/82; PULSE 76; RESP 18; TEMP 98.2
--- NOTE | 2024-12-18 16:33 | HMCIMG ---
CT ABDOMEN/PELVIS W/O CONTRAST HISTORY: Lower abdominal pain COMPARISON: 12/17/2024 TECHNIQUE: Multiple sequential axial images of the abdomen and pelvis were obtained from the dome of the diaphragm through symphysis pubis. Patient was not given contrast through intravenous route. Oral contrast was not given. FINDINGS: No pleural effusion is seen bilaterally. There is no evidence of parenchymal disease or pulmonary nodule of the visualized lower lungs. Degenerative changes of the thoracolumbar spine are present. The heart is not enlarged. Postcholecystectomy changes are seen. The liver measures 15 cm. There is left lower anterior abdominal wall intramuscular soft tissue mass measuring 7.2 x 3.7 cm may be related to soft tissue hematoma. There is also enlargement of the adjacent left anterior abdominal wall musculature. Mild fat stranding is seen. The liver, spleen, adrenal glands and pancreas are unremarkable. There is no evidence of hydronephrosis bilaterally. No evidence of renal stone is seen. Fecal material is seen in the colon. There are normal size retroperitoneal and mesenteric lymph nodes. No ascites is seen. No CT evidence of acute appendicitis is seen. T-shaped intrauterine device is seen. There is small periumbilical hernia with small amount of air collection and possible bowel content. This was also seen on previous study. This may relate to recent surgery. Pelvic sidewalls are symmetric bilaterally. Bladder is well distended without wall thickening. IMPRESSION: 1. There is left lower anterior abdominal wall intramuscular soft tissue mass measuring 7.2 x 3.7 cm may be related to soft tissue hematoma. There is also enlargement of the adjacent left anterior abdominal wall musculature. Mild fat stranding is seen. CT was performed with one or more following dose reduction techniques: automated exposure control, adjustment of the mA and kv according to patient's size, or use of a iterative reconstruction technique.
[2024-12-18] MEDS ORDERED: TRAM50TA4 PO (16:56)
--- NOTE | 2024-12-18 17:45 | NUR ---
DISCHARGE PIV DC'D DISCHARGE INSTRUCTIONS PROVIDED TO THE PATIENT PATIENT IS AWARE OF PRESCRIPTION SENT TO PHARMACY PATIENT IS AWARE TO FOLLOW UP WITH DR. SERRANO PATIENT TOLERATED A GI SOFT DINNER PRIOR TO DISCHARGE, NO COMPLAINTS OF ANY ADDITIONAL PAIN OR NAUSEA ALL QUESTIONS ANSWERED PRIOR TO DISCHARGE
== END 2024-12-18 17:55 | disposition home or self-care (01) ==
LOC: EDH 17:50 → EDHIP 17:51 → INTOOBSV 17:51 → 3AH 23:49
PROVIDERS: ADMIT Internal Medicine; ATTEND Internal Medicine
DX: N39.0 Urinary tract infection, site not specified (principal); D64.9 Anemia, unspecified; R10.11 Right upper quadrant pain; R10.12 Left upper quadrant pain; K85.90 Acute pancreatitis without necrosis or infection, unspecified; K42.9 Umbilical hernia without obstruction or gangrene; Z90.49 Acquired absence of other specified parts of digestive tract; Z79.899 Other long term (current) drug therapy
CPT/HCPCS: 96376 ×2; 96375 ×3; 99285; 82550; 84484; 80053 ×2; 85025 ×2; 87086; 81001; 81025; 36415 ×2; 74177; 93005; 96361; 96365; 83735; 71045; 74176; J7030; J0696 ×2; J2270 ×4; Q9967; G0378 ×6; J3490; J2405 ×2; J3480; 96374

== ENCOUNTER 2024-12-23 22:15 | Emergency (ER) | payer MEDICAID ==
[~2024-12-23] VITALS: Ht 160 cm; Wt 64.4 kg
[~2024-12-23 22:15] MED LIST changes: +CEFD300C3 PO; +IBUP-2077 PO; -IOHEXOL-350 75 ML VIAL IV ONE; +TRAM50TA4 PO
--- NOTE | 2024-12-23 22:35 | EKG ---
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
[2024-12-23] MEDS: PANTOPrazole 40 MG/VIAL IVP ONE (22:40)
[2024-12-23] MEDS: ondanSETRON 4MG INJ IVP ONE (22:40)
[2024-12-23] MEDS: morPHINE 4 MG SYG IVP ONE (22:40)
[2024-12-23] MEDS: 0.9%NACL 1000ML 1,000 ML IV ONE (22:40)
[2024-12-23 22:44] LABS: BASOPHILS # (AUTO) 0.02 K/uL (0.00-0.20); BASOPHILS % (AUTO) 0.2 % (0.0-5.0); EOSINOPHILS # (AUTO) 0.08 K/uL (0.00-0.70); EOSINOPHILS % (AUTO) 0.9 % (0.0-8.0); HEMATOCRIT 35.5 % (36-48); IMMATURE GRANULOCYTE ABSOLUTE 0.03 K/uL (0-1); LYMPHOCYTES # (AUTO) 2.4 K/uL (1.0-4.8); LYMPHOCYTES % (AUTO) 27.7 % (21.0-51.0); MEAN CORPUSCULAR HEMOGLOBIN 30.8 pg (27.0-33.0); MEAN CORPUSCULAR HGB CONC 33.8 g/dL (32.0-36.0); MONOCYTES # (AUTO) 0.5 K/uL (0.1-1.0); MONOCYTES % (AUTO) 6.2 % (3.0-13.0); NEUTROPHILS # (AUTO) 5.7 K/uL (1.8-7.7); NEUTROPHILS % (AUTO) 64.7 % (40.0-77.0); PLATELET COUNT (AUTO) 356 K/uL (130-400); RED CELL DISTRIBUTION WIDTH 13.2 % (11.0-15.5); WHITE BLOOD COUNT (AUTO) 8.8 K/uL (4.8-10.8)
[2024-12-23 22:52] LABS: CREATININE 0.7 mg/dL (0.5-1.0); POTASSIUM 3.8 mmol/L (3.5-5.1)
[2024-12-23 22:57] LABS: ALBUMIN 3.6 g/dL (3.5-5.0); BILIRUBIN,DIRECT 0.1 mg/dL (0.0-0.3); BILIRUBIN,TOTAL 0.6 mg/dL (0.2-1.0); TOTAL PROTEIN, SERUM 7.4 g/dL (6.0-8.3)
[2024-12-23] MEDS ORDERED: IOHEXOL-350 75 ML VIAL IV ONE (23:13)
--- NOTE | 2024-12-23 23:44 | ERN ---
ED Note History of Present Illness Stated Complaint: C/O ABD PAIN TO LEFT SIDE Chief Complaint: Abdominal Pain Time Seen by MD: 22:19 Time Seen by Midlevel: 22:19 Dictation: The patient is a 39-year-old female with a history of umbilical hernia repair by Dr. Sohail Lui on 12/13/2024, cholecystectomy who presents to the emergency department with complaints of left upper abdominal pain onset 1:00 p.m. associated with nausea. Patient reports she went to see Dr. Ho this morning and they had scheduled her for an ultrasound to monitor a hematoma in her abdomen that she developed a after the surgery. Patient denies any fevers, diarrhea or constipation. 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 CLERK 12/18/24 Reported Medications Ibuprofen (Ibuprofen 800 mg Tab) 800 Mg Tab, 1 TAB PO Q6HPRN PRN for PAIN LEVEL 1 TO 5 for 30 Days, #90 TAB 0 Refills 12/18/24 Past Medical History Past Medical History: No Pertinent History Additional Past Medical Hx: PANCREATITIS Surgical History: Other Surgical History Other: HERNIA Social History: Negative, Lives with family RN Note Reviewed/Agreed w/PFSH: Yes Review of System Dictation Constitutional: Negative for fever,chills, and weight loss Eyes: Negative for injury, pain,redness, and discharge ENT: Negative for injury,pain or swelling Cardiovascular: Negative for chest pain, palpitations, and edema Respiratory: Negative for shortness of breath, cough, and wheezing, Abdomen/GI: Negative for vomiting, diarrhea, and constipation positive for abdominal pain, nausea Back: Negative for injury and pain : Negative for injury, bleeding and discharge MS/Extremity: Negative for injury and deformity Skin: Negative for rash, and discoloration Neuro: Negative for headache, weakness, numbness, tingling, and seizure Psych: Negative for suicide ideation, homicidal ideation, and hallucinations Initial Vital Sign VS Vital Signs Date Time Temp Pulse Resp B/P (MAP) Pulse Ox O2 Delivery O2 Flow Rate FiO2 12/23/24 22:17 98.4 85 20 110/77 100 Room Air 12/23/24 23:16 0 21 Physical Exam Dictation Vital Signs reviewed General Appearance: Alert, oriented x 3, no acute distress, well developed, nourished. Head and Face: non-traumatic. Eyes: PERRL, pink conjunctivas, eyelid no trauma, anterior chamber with arcus senilis. Ears: Pinnas intact and no signs of trauma or erythema ear canals clear and no discharge TM no erythema Nose: No discharge, no bleeding. Oropharynx: Mouth normal, tongue pink. pharynx clear,no erythema, tonsils no exudates, no abscesses noted, mucous membrane moist Neck: Supple, non-tender, no thyromegaly, no masses, no JVD, no bruits Breast:Deferred Chest:No tenderness, no crepitus, no paradoxical movement, no retractions Lungs:Clear, well-ventilated, symmetric, no rales, no wheezing, no rhonchi, no stridor, good breath sounds bilaterally Heart: Regular rate, regular rhythm, no murmur, no gallops Vascular: no peripheral edema, Abdomen: Soft, positive bowel sounds, nondistended, no guarding, Generalized tenderness, no rebound, no masses no hepatomegaly, no splenomegaly, no Orr's sign, no hernias. Rectal: Deferred Genital: Deferred Neurological: Normal speech, motor function intact, sensory function intact Musculoskeletal: Neck nontender, full range of motion, back nontender, full range of motion, Extremities: nontender, full range of motion Skin: Color pink, dry, no turgor, no rash, no lacerations, no abrasions, no contusions. Surgical incisions noted to left upper abdomen, no drainage, no erythema Lymphatic: Deferred Results (Laboratory/Radiology) Laboratory/Radiology Laboratory Tests Test 12/23/24 22:37 White Blood Count 8.8 K/uL (4.8-10.8) Red Blood Count 3.90 MIL/uL (4.00-5.50) L Hemoglobin 12.0 g/dL (12.0-16.0) Hematocrit 35.5 % (36-48) L Mean Corpuscular Volume 91.0 fL (79-99) Mean Corpuscular Hemoglobin 30.8 pg (27.0-33.0) Mean Corpuscular Hemoglobin Concent 33.8 g/dL (32.0-36.0) Red Cell Distribution Width 13.2 % (11.0-15.5) Platelet Count 356 K/uL (130-400) Mean Platelet Volume 8.9 fL (7.5-10.5) Immature Granulocyte % (Auto) 0.3 % (0-1) Neutrophils (%) (Auto) 64.7 % (40.0-77.0) Lymphocytes (%) (Auto) 27.7 % (21.0-51.0) Monocytes (%) (Auto) 6.2 % (3.0-13.0) Eosinophils (%) (Auto) 0.9 % (0.0-8.0) Basophils (%) (Auto) 0.2 % (0.0-5.0) Neutrophils # (Auto) 5.7 K/uL (1.8-7.7) Lymphocytes # (Auto) 2.4 K/uL (1.0-4.8) Monocytes # (Auto) 0.5 K/uL (0.1-1.0) Eosinophils # (Auto) 0.08 K/uL (0.00-0.70) Basophils # (Auto) 0.02 K/uL (0.00-0.20) Absolute Immature Granulocyte (auto 0.03 K/uL (0-1) Nucleated Red Blood Cells 0.0 % (0.0-0.19) Sodium Level 140 mmol/L (136-145) Potassium Level 3.8 mmol/L (3.5-5.1) Chloride Level 104 mmol/L (101-111) Carbon Dioxide Level 30 mmol/L (21-32) Blood Urea Nitrogen 9 mg/dL (7-18) Creatinine 0.7 mg/dL (0.5-1.0) Glomerular Filtration Rate Calc 113 mL/min (>90) Random Glucose 102 mg/dL (70-105) Total Calcium 9.2 mg/dL (8.5-10.1) Total Bilirubin 0.6 mg/dL (0.2-1.0) Direct Bilirubin 0.1 mg/dL (0.0-0.3) Aspartate Amino Transf (AST/SGOT) 21 U/L (10-37) Alanine Aminotransferase (ALT/SGPT) 14 U/L (12-78) Alkaline Phosphatase 87 U/L (50-136) Total Creatine Kinase 44 U/L (21-232) Troponin I High Sensitivity < 4 ng/L (4-50) L Total Protein 7.4 g/dL (6.0-8.3) Albumin 3.6 g/dL (3.5-5.0) Lipase 170 U/L (16-77) H Serum Test, Qualitative NEGATIVE (NEGATIVE) REASON: left upper abd pain s/p heernia repair ORDERING PHYSICIAN: CAMERON MAHONEY PROCEDURE: ABD PEL W - CT ABDOMEN/PELVIS W/CONTRAST CT ABDOMEN/PELVIS W/CONTRAST HISTORY: Left upper abdominal pain COMPARISON: None TECHNIQUE: Multiple sequential axial images of the abdomen and pelvis were obtained from the dome of the diaphragm through symphysis pubis. Patient was given 100 cc Isovue through intravenous route. Oral contrast was not given. FINDINGS: No pleural effusion is seen bilaterally. There is no evidence of parenchymal disease or pulmonary nodule of the visualized lower lungs. Degenerative changes of the thoracolumbar spine are present. The heart is not enlarged. There is left upper abdominal wall intramuscular hematoma measuring 3.4 x 7.3 cm. The liver, spleen, adrenal glands and pancreas are unremarkable. There is no evidence of hydronephrosis bilaterally. No evidence of renal stone is seen. Fecal material is seen in the colon. There are normal size retroperitoneal and mesenteric lymph nodes. No ascites is seen. Atherosclerotic changes are present. There is T-shaped intrauterine device. Pelvic sidewalls are symmetric bilaterally. Bladder is well distended without wall thickening. IMPRESSION: 1. There is left upper abdominal wall intramuscular hematoma measuring 3.[address] was performed with one or more following dose reduction techniques: automated exposure control, adjustment of the mA and kv according to patient's size, or use of a iterative reconstruction technique. Labs Reviewed?: Yes EKG: (+) rhythm (Sinus rhythm) EKG Comment: Date:12/23/2024 Time:2232 Ventricular rate:76 [place] interval:132 QRS duration:75 QT/QTc:357 EKG interpretation: Sinus rhythm Reviewed by ED Attending no STEMI ED Course ED Course Orders Procedure Category Date Status Time Cbc With Differential LAB 12/23/24 Complete 22:27 Troponin I High LAB 12/23/24 Complete Sensitivity 22:27 Urinalysis Profile LAB 12/23/24 Logged 22:27 12 Lead Ekg Tracing- EKG 12/23/24 Complete Technical 22:27 0.9%Nacl 1000ml (Ns PHA 12/23/24 Complete 1000ml) 22:30 Morphine 4mg Syg PHA 12/23/24 Complete (Morphine 4mg Syg) 22:30 Ondansetron 4mg Inj PHA 12/23/24 Complete (Zofran 4mg Inj) 22:30 Pantoprazole 40mg Inj PHA 12/23/24 Complete (Protonix 40mg Inj 22:30 Creatine Kinase, Total LAB 12/23/24 Complete 22:27 Lipase LAB 12/23/24 Complete 22:27 Basic Metabolic Panel LAB 12/23/24 Complete 22:27 Testing, LAB 12/23/24 Complete Serum Hcg 22:27 Hepatic Function Panel LAB 12/23/24 Complete 22:27 Ct Abdomen/Pelvis CT 12/23/24 Resulted W/Contrast 23:01 Iohexol (Omnipaque) PHA 12/23/24 Complete 23:13 Current Medications Medications (Trade) Dose Ordered Sig/Dawn Route PRN Reason Start Time Stop Time Status Last Admin Dose Admin Iohexol (Omnipaque) 75 ml STK-MED ONCE IV 12/23/24 23:13 12/23/24 23:13 DC Morphine Sulfate (morPHINE 4MG SYG) 4 mg ONCE ONCE IVP 12/23/24 22:30 12/23/24 22:31 DC 12/23/24 22:40 Ondansetron HCl (zoFRAN 4MG INJ) 4 mg ONCE ONCE IVP 12/23/24 22:30 12/23/24 22:31 DC 12/23/24 22:40 Pantoprazole Sodium (PROTonix 40MG INJ) 40 mg ONCE ONCE IVP 12/23/24 22:30 12/23/24 22:31 DC 12/23/24 22:40 Sodium Chloride 1,000 ml @ 0 mls/hr ONCE ONCE IV 12/23/24 22:30 12/23/24 22:31 DC 12/23/24 22:40 Vital Signs Date Time Temp Pulse Resp B/P (MAP) Pulse Ox O2 Delivery O2 Flow Rate FiO2 12/23/24 23:16 98.2 81 17 121/77 99 Room Air* 0 21 12/23/24 22:17 98.4 85 20 110/77 100 Room Air Medical Decision Making MDM The patient is a 39-year-old female with a history of umbilical hernia repair by Dr. Sohail Lui on 12/13/2024, cholecystectomy who presents to the emergency department with complaints of left upper abdominal pain onset 1:00 p.m. associated with nausea. Patient reports she went to see Dr. Ho this morning and they had scheduled her for an ultrasound to monitor a hematoma in her abdomen that she developed a after the surgery. Patient denies any fevers, diarrhea or constipation. CBC showed no leukocytosis, no anemia, chemistry showed no electrolyte imbalance, slightly elevated lipase, negative troponin, CT abdomen showed a left upper abdominal wall intramuscular hematoma measuring 3.4 x 7.3 cm. Patient with similar hematoma in previous CT done on 12/18/2024. Patient reports improving in pain. Patient in no acute distress, nontoxic appearance. Patient instructed to follow up with Dr. Lui in the next two days. Differential diagnosis: Hematoma, gastritis, gastroenteritis, constipation Need for hospitalization: Patient does not meet criteria for hospitalization. There are no social concerns with this patient. DX & DISP Disposition: Discharge Departure Impression: Primary Impression: Abdominal pain Additional Impression: Abdominal wall hematoma Condition: Stable Additional Instructions: Please follow up with Dr. Lui as soon as possible. If symptoms worsen please return to ER. FOLLOW-UP WITH PRIMARY CARE PROVIDER IN 1 TO 2 DAYS. TAKE MEDICATIONS DIRECT ED HERE IN THE EMERGENCY ROOM. OKAY TO CONTINUE HOME MEDICATIONS UNLESS OTHERWISE DISCUSSED DURING YOUR VISIT IN THE EMERGENCY ROOM TODAY. RETURN TO YOUR NEAREST EMERGENCY ROOM IF SYMPTOMS WORSEN OR IF THERE IS NO IMPROVEMENT. CALL 911 IF YOU NEED IMMEDIATE ASSISTANCE. TAKE TYLENOL OR MOTRIN [id number] NEEDED AND IF NO CONTRAINDICATIONS ARE PRESENT. INCREASE ORAL HYDRATION. A WOUND CULTURE OR URINE CULTURE WAS ORDERED HERE IN THE EMERGENCY ROOM DEPARTMENT PLEASE FOLLOW-UP WITH PRIMARY CARE PROVIDER AND ADVISE THEM TO GET REPEAT PORTS FROM OUR FACILITY. IF YOU HAD ANY MARIELA WRAP/SPLINTS THAT WERE APPLIED HERE, PLEASE DO NOT REMOVE THEM UNTIL YOU SEE YOUR PRIMARY CARE OR SPECIALTY. Referrals: TIMOTHY MAHAN (PCP) Time of Disposition: 01:02 I have reviewed the case, and I agree with, Diagnosis and Plan CAMERON MAHONEY [facility] Dec 23, 2024 23:44
--- NOTE | 2024-12-24 00:20 | HMCIMG ---
CT ABDOMEN/PELVIS W/CONTRAST HISTORY: Left upper abdominal pain COMPARISON: None TECHNIQUE: Multiple sequential axial images of the abdomen and pelvis were obtained from the dome of the diaphragm through symphysis pubis. Patient was given 100 cc Isovue through intravenous route. Oral contrast was not given. FINDINGS: No pleural effusion is seen bilaterally. There is no evidence of parenchymal disease or pulmonary nodule of the visualized lower lungs. Degenerative changes of the thoracolumbar spine are present. The heart is not enlarged. There is left upper abdominal wall intramuscular hematoma measuring 3.4 x 7.3 cm. The liver, spleen, adrenal glands and pancreas are unremarkable. There is no evidence of hydronephrosis bilaterally. No evidence of renal stone is seen. Fecal material is seen in the colon. There are normal size retroperitoneal and mesenteric lymph nodes. No ascites is seen. Atherosclerotic changes are present. There is T-shaped intrauterine device. Pelvic sidewalls are symmetric bilaterally. Bladder is well distended without wall thickening. IMPRESSION: 1. There is left upper abdominal wall intramuscular hematoma measuring 3.[address] was performed with one or more following dose reduction techniques: automated exposure control, adjustment of the mA and kv according to patient's size, or use of a iterative reconstruction technique.
[2024-12-24 01:11] VITALS: BP 115/81; PULSE 74; RESP 18; TEMP 98.5; O2SAT 99
[2024-12-24 01:33] LABS: APPEARANCE,URINE CLEAR (CLEAR); BILIRUBIN,URINE NEGATIVE (NEGATIVE); COLOR,URINE COLORLESS (YELLOW); GLUCOSE, URINE (UA) NEGATIVE (NEGATIVE); KETONES,URINE NEGATIVE (NEGATIVE); LEUKOCYTE ESTERASE ,URINE NEGATIVE Leu/uL (NEGATIVE); NITRATE,URINE NEGATIVE (NEGATIVE); OCCULT BLOOD,URINE NEGATIVE (NEGATIVE); PROTEIN,URINE 10 mg/dL (NEGATIVE); RBC,URINE 0-1 /HPF (0-1); SQUAMOUS EPITHELIAL CELL,UR RARE /HPF (0-2); UROBILINOGEN,URINE 0.2 mg/dL (0.2-1.0); WBC,URINE 0-1 /HPF (0-1)
== END 2024-12-24 01:36 | disposition home or self-care (01) ==
LOC: EDH 22:15
DX: S30.1XXA Contusion of abdominal wall, initial encounter (principal); R10.12 Left upper quadrant pain; X58.XXXA Exposure to other specified factors, initial encounter; Y93.89 Activity, other specified; Y92.89 Other specified places as the place of occurrence of the external cause; Y99.8 Other external cause status
CPT/HCPCS: 99285; 74177; 96374; 96375; 96361; 82550; 80076; 84484; 80048; 84703; 83690; 85025; 81001; 36415; 93005; J7030; J2405; J2270; J2470; Q9967

== ENCOUNTER → 2025-02-04 | Outpatient (CLI) | payer MEDICAID ==
[~2025-02-04] MED LIST changes: -TRAM50TA4 PO
--- NOTE | 2025-02-04 10:45 | HMCIMG ---
Exam Type: US ABD LIMITED/ABD WALL Clinical Information: Unspecified abdominal pain Comparison: None Findings and impression: Clear fluid collection at the site of concern measuring 4.1 x 3.2 cm probably representing a seroma.
== END | disposition home or self-care (01) ==
LOC: RAH 09:35
PROVIDERS: ATTEND Surgery
DX: R10.12 Left upper quadrant pain (principal)
CPT/HCPCS: 76705